=== PATIENT | male | born 1935 | race Caucasian/White ===

== ENCOUNTER 2021-11-16 08:38 | Outpatient (CLI) | payer MEDICARE, SELFPAY ==
[2021-11-16 18:33] LABS: Hemoglobin A1C 8.1 % (<5.7)
[2021-11-16 18:43] LABS: Alanine Aminotransferase 15 U/L (6-50); Albumin Level 4.4 g/dL (3.5-5.1); Alkaline Phosphatase 76 U/L (38-126); Anion Gap 14 mmol/L (8-16); Aspartate Amino Transferase 45 U/L (17-59); Bilirubin,Total 0.4 mg/dL (0.2-1.3); Blood Urea Nitrogen 14 mg/dL (9-20); Calcium 9.1 mg/dL (8.4-10.2); Carbon Dioxide 24 mmol/L (22-30); Chloride 103 mmol/L (98-107); Estimated Glomerular Filt Rate > 60; Glucose 158 mg/dL (65-110); Potassium 3.9 mmol/L (3.4-5.0); Sodium 141 mmol/L (137-145)
== END 2021-11-16 08:39 | disposition home or self-care (01) ==
LOC: ANHGOSHLAB 08:42
PROVIDERS: PCP Family Medicine; Visit Provider Family Medicine
DX: E11.9 Type 2 diabetes mellitus without complications (principal)
CPT/HCPCS: 36415; 80053; 83036

== ENCOUNTER 2022-09-15 15:38 | Outpatient (CLI) | payer MEDICARE, SELFPAY ==
[2022-09-15 19:17] LABS: Alanine Aminotransferase 16 U/L (6-50); Albumin Level 4.3 g/dL (3.5-5.1); Alkaline Phosphatase 64 U/L (38-126); Anion Gap 7 mmol/L (8-16); Aspartate Amino Transferase 24 U/L (17-59); Bilirubin,Total 0.4 mg/dL (0.2-1.3); Blood Urea Nitrogen 13 mg/dL (9-20); Calcium 9.6 mg/dL (8.4-10.2); Carbon Dioxide 30 mmol/L (22-30); Chloride 101 mmol/L (98-107); Cholesterol 186 mg/dL (0-200); Estimated Glomerular Filt Rate > 60; Glucose 192 mg/dL (65-110); HDL Direct 36 mg/dL; Potassium 4.4 mmol/L (3.4-5.0); Sodium 138 mmol/L (137-145); Triglycerides 195 mg/dL (<150)
[2022-09-15 19:28] LABS: LDL Cholesterol Direct 117 mg/dL
[2022-09-15 20:08] LABS: Hemoglobin A1C 9.8 % (<5.7)
== END 2022-09-15 15:39 | disposition home or self-care (01) ==
LOC: ANHGOSHLAB 15:39
PROVIDERS: PCP Family Medicine; Visit Provider Family Medicine
DX: E11.9 Type 2 diabetes mellitus without complications (principal)
CPT/HCPCS: 36415; 80053; 80061; 83036

== ENCOUNTER 2023-05-14 13:59 | Outpatient (CLI) | payer MEDICARE, SELFPAY ==
--- NOTE | ~2023-05-14 | XR_ITS ---
EXAMINATION: XR shoulder RT min 2V DATE: 05/14/2023 14:13 INDICATION: Right shoulder pain. TECHNIQUE: 4 views of right shoulder were obtained. COMPARISON: None. FINDINGS: Bone alignment is normal. No fracture. There is severe osteoarthritis of glenohumeral joint and acromioclavicular joint. There is a loose body in right glenohumeral joint. 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 IMPRESSION: 1. 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 Reviewed, dictated and finalized at location A.
== END 2023-05-14 14:00 ==
PROVIDERS: PCP Family Medicine; Visit Provider Family Medicine
DX: M19.011 Primary osteoarthritis, right shoulder (principal)
CPT/HCPCS: 73030

== ENCOUNTER 2024-03-23 15:30 | Emergency (ER) | payer MEDICARE, SELFPAY ==
[2024-03-23 15:55] VITALS: BP 177/134; PULSE 111; RESP 20; TEMP 36.3; O2SAT 99
--- NOTE | 2024-03-23 16:12 | ED_ITS ---
HPI - Fall General Chief Complaint: Fall Stated Complaint: Injured Face Right Side Time Seen by Provider: 03/23/24 15:46 Source: patient, family () and RN notes reviewed Mode of arrival: ambulatory Limitations: no limitations History of Present Illness HPI Narrative: and daughter present with patient today with a large laceration to his forehead and smaller lacerations to his hands. Patient was found approximately 1 hour prior to exam by his neighbors lying in his driveway. Patient does not remember falling or what happened prior to his fall. He is unsure how long he was lying in his driveway before he was found. He denies any current pain, dizziness, headache, vision changes, neck pain. He is unsure of the date of his last tetanus vaccine. Related Data Allergies Allergy/AdvReac Type Severity Reaction Status Date / Time No Known Allergies Allergy Unknown Verified 03/23/24 15:53 Review of Systems Review of Systems: CONSTITUTIONAL: Denies body aches, fever, chills, or sweats. EYES: Denies visual changes, redness, or discharge. ENT: Denies rhinorrhea, congestion, sore throat, or otalgia. CARDIOVASCULAR: Denies chest pain, palpitations, or edema. RESPIRATORY: Denies cough or dyspnea. GASTROINTESTINAL: Denies abdominal pain, nausea, vomiting, or diarrhea. GENITOURINARY: Denies dysuria or hematuria. SKIN: Forehead laceration, laceration of fingers MUSCULOSKELETAL: Denies back pain, joint pain, or myalgia. NEUROLOGIC: Denies headache, numbness, tingling, or weakness. PSYCH: Denies depression or anxiety. [facility] Past Medical History Medical History Cognitive impairment Overweight (BMI 25.0-29.9) Family History Family History Grandparent Diabetes mellitus Mother Diabetes mellitus Father Patient's father is Other Carcinoma of colon Social History Social History Smoking status: Current some day smoker Alcohol intake: never Lack of Transportation: No Lack of Food: Never True Current Housing: I Have Housing Concerned About Future Housing: No Difficulty Paying Gas/Electric Bills: No Difficulty Paying for Meds: No Comments At time of signature, I have reviewed and agree with nursing past medical, surgical, social and family history unless otherwise noted. Please see nursing chart for further information. There is no relevant family history pertinent to the presenting complaint Exam Narrative: GENERAL: Well-appearing, well-nourished, and in no acute distress. HEAD: Normocephalic. Approximately 5 cm jagged laceration to the mid forehead that is approximately 1.5 cm deep and has moderate active bleeding. EYES: EOMI. PERRL. No redness or drainage. Conjunctivae normal. ENT: Mucous membranes pink and moist. NECK: Normal AROM. Supple. No lymphadenopathy. Neck is nontender. CHEST: No respiratory distress. EXTREMITIES: Laceration to the right 5th finger and palm area. Left 2nd finger laceration, skin tear to left dorsum. SKIN: Warm, dry, no rash. Capillary refill normal. Normal skin turgor. NEURO: No focal deficits. Alert and oriented x3. Gait steady. PSYCH: Normal affect. No signs of depression or anxiety. Course Course Emergency Course: Pressure dressing applied to forehead. Dressings applied to hands Level of Care: Express Care Visit Vital Signs Vital signs: Vital Signs Temperature 97.3 F L 03/23/24 15:55 Pulse Rate 111 H 03/23/24 15:55 Respiratory Rate 03/23/24 15:55 Blood Pressure 177/134 H 03/23/24 15:55 Pulse Oximetry 99 03/23/24 15:55 Temperature 97.3 F L 03/23/24 15:55 Pulse Rate 111 H 03/23/24 15:55 Respiratory Rate 03/23/24 15:55 Blood Pressure 177/134 H 03/23/24 15:55 Pulse Oximetry 99 03/23/24 15:55 Reviewed. Transfer Transfered to: [facility] Transportation: Other (Private vehicle) Transfer rationale: Unwitnessed fall, head injury Accepting physician: León MDM - Fall MDM Narrative Medical decision making narrative: Patient will be transferred to the ER at [facility] for further evaluation. Declines EMS transfer. Differential Diagnosis Differential diagnosis: Likely syncope and other (TIA, slip and fall, loss consciousness, intracranial hemorrhage, laceration, abrasion) Critical Care Time Critical Care Time Critical Care Time: No Discharge Plan Discharge Clinical Impression: Fall, Forehead laceration, Laceration of dorsum of hand Patient Disposition: Acute Care Hospital Condition: Stable Patient Language: Ghanaian Prescriptions: No Action pentoxifylline 400 mg tablet extended release See Rx Instructions .ROUTE .COMPLEX Qty: 270 3RF Dose Instruction: TAKE 1 TABLET TWICE A DAY Rx Instructions: TAKE 1 TABLET three x A DAY metformin 500 mg tablet extended release 24 hr See Rx Instructions .ROUTE .COMPLEX Qty: 180 1RF Dose Instruction: TAKE 1 TABLET TWICE A DAY Rx Instructions: TAKE 1 TABLET TWICE A DAY lisinopril 20 mg tablet See Rx Instructions .ROUTE .COMPLEX Qty: 90 1RF Dose Instruction: TAKE 1 TABLET DAILY Rx Instructions: TAKE 1 TABLET DAILY Follow-up/Referrals: PHYSICIAN,ELECTRIC METER INSTALLER [Primary Care Provider] - Time of Disposition: 16:14
== END 2024-03-23 16:14 | disposition short-term general hospital (02) ==
PROVIDERS: Emergency Provider Nurse Practitioner
DX: S01.81XA Laceration without foreign body of other part of head, initial encounter (principal); S61.216A Laceration without foreign body of right little finger without damage to nail, initial encounter; S61.211A Laceration without foreign body of left index finger without damage to nail, initial encounter; S61.411A Laceration without foreign body of right hand, initial encounter; W19.XXXA Unspecified fall, initial encounter; F17.200 Nicotine dependence, unspecified, uncomplicated
CPT/HCPCS: 99212; G0463

== ENCOUNTER 2024-03-23 16:32 | Emergency (ER) | payer MEDICARE, SELFPAY ==
--- NOTE | ~2024-03-23 | CT_ITS ---
EXAMINATION: CT brain wo con DATE: 03/23/2024 17:44 INDICATION: trauma . TECHNIQUE: Computed tomography (CT) of the head was performed without intravenous contrast. The mA wa s adjusted according to patient size. Iterative reconstruction technique was employed. The dose-lengt h product was 681.00 mGy-cm. COMPARISON: None. FINDINGS: No acute intracranial hemorrhage or extra-axial fluid collection. No hydrocephalus, mass, or herniation. No acute ischemic infarct. Unremarkable dural venous sinus attenuation. No acute osseous abnormality. Left frontal/periorbital soft tissue swelling. The aerated spaces are clear. Moderate atrophy and chronic white matter change. Atherosclerotic intracranial calcification. Bilater al lens replacements. IMPRESSION: No acute intracranial process. Reviewed, dictated and finalized at location K. UNT ADMINISTRATOR
--- NOTE | ~2024-03-23 | CT_ITS ---
EXAMINATION: CT facial & cervical spine wo DATE: 03/23/2024 17:44 INDICATION: trauma TECHNIQUE: Computed tomography (CT) of the maxillofacial region and cervical spine was performed with out intravenous contrast. Automated exposure control and iterative reconstruction technique were empl oyed. The dose-length product was 290.49 mGy-cm. COMPARISON: None FINDINGS: CERVICAL: Vertebral Body Alignment: Intact. Craniocervical and atlantoaxial alignment: Moderate degenerative change. Alignment intact. Osseous structures/fracture: No evidence of a lytic or blastic process in the visualized spine. No e vidence of acute fracture. Cervical soft tissues: The paraspinal soft tissues planes are maintained. Degenerative changes: Degenerative changes, without severe neural foraminal or central canal narrowin g. FACE: Soft Tissues: Left frontal, periorbital, and cheek soft tissue swelling. Facial bones: No acute fracture. No lytic or blastic process. Eyes: The globes are intact. The soft tissue planes of the orbits are maintained. Bilateral lens re placements. Paranasal Sinuses: The visualized aerated spaces are clear. Foreign Bodies: No radiopaque foreign bodies. Other Findings: Periodontal disease. IMPRESSION: No acute fracture or traumatic malalignment in the cervical spine. No acute facial bone fracture. Reviewed, dictated and finalized at location K. SEALING MACHINE OPERATOR IMPRESSION: No acute fracture or traumatic malalignment in the cervical spine. No acute fac ial bone fracture.
--- NOTE | ~2024-03-23 | XR_ITS ---
EXAM: XR hand LT min 3V DATE: 03/23/2024 17:50 HISTORY: hand injury . COMPARISON: None available. FINDINGS: Normal mineralization. No fracture or dislocation. No lytic or blastic lesion. Scattered o steoarthritic changes, moderate at the first CMC joint. No erosion or periosteal change. Multiple irr egular hyperdense foci in the soft tissues adjacent to the fifth MTP joint and proximal fifth digit, with soft tissue irregularity. IMPRESSION: Soft tissue laceration and debris projecting laterally at the level of the fifth MTP join t and fifth proximal digit. Reviewed, dictated and finalized at location K. PERSON IMPRESSION: Soft tissue laceration and debris projecting laterally at the level of the fifth MTP joint and fifth proximal digit.
[2024-03-23 16:36] VITALS: BP 177/108; PULSE 116; RESP 18; TEMP 36.8; O2SAT 98
--- NOTE | 2024-03-23 17:16 | PC.NURSE ---
MD Traore at bedside suturing laceration on pt. forehead.
--- NOTE | 2024-03-23 17:34 | ED_ITS ---
HPI - General Adult General Chief complaint: Fall Stated complaint: unwitnessed fall Time Seen by Provider: 03/23/24 16:42 History of Present Illness HPI narrative: 89-year-old male presenting to the emergency department for evaluation after having a ground level fall. Patient does have dementia and states that she was unaware that the patient had gotten outside. Patient had the doorbell rang and was actually the neighbors notifying her that the patient had a fall in the yd. She suspects he was outside for approximately 10 minutes. Patient states he was not outside for that long. Patient did have a laceration does forehead contusion to the left side of his face and multiple skin tears. Patient is alert at his baseline denies any current pain. Related Data Allergies Allergy/AdvReac Type Severity Reaction Status Date / Time No Known Allergies Allergy Unknown Verified 03/23/24 16:35 Review of Systems Review of Systems: All systems reviewed & are unremarkable except as noted in HPI and below PMFSH Past Medical History Medical History Cognitive impairment Overweight (BMI 25.0-29.9) Family History Family History Grandparent Diabetes mellitus Mother Diabetes mellitus Father Patient's father is Other Carcinoma of colon Social History Social History Smoking status: Current some day smoker Alcohol intake: never Lack of Transportation: No Lack of Food: Never True Current Housing: I Have Housing Concerned About Future Housing: No Difficulty Paying Gas/Electric Bills: No Difficulty Paying for Meds: No Exam Narrative: APPEARANCE: Well appearing, no pain, no distress, well-nourished. HEAD: normocephalic, atraumatic. EYES: PERRLA/EOMI, conjunctivae clear. NOSE: Normal no drainage EARS:TMS clear with good light reflex. THROAT: Pharynx clear, no exudate. NECK: Supple. No adenopathy, no masses. RESPIRATORY: Airway patent, respirations nonlabored. Clear to auscultation bilaterally, no rales, rhonchi, wheezing. CARDIOVASCULAR: Regular rate and rhythm without murmurs rubs or gallops. ABDOMINAL: Soft, nontender, nondistended, normal bowel sounds MUSCULOSKELETAL: Contusion to left hand NEURO: Alert. Cranial nerves II through XII intact. Good gait. Good coordination SKIN: Forehead laceration and multiple skin tears Course Vital Signs Vital signs: Vital Signs Temperature 98.2 F 03/23/24 16:36 Pulse Rate 116 H 03/23/24 16:36 Respiratory Rate 18 03/23/24 16:36 Blood Pressure 177/108 H 03/23/24 16:36 Pulse Oximetry 98 03/23/24 16:36 Oxygen Delivery Room Air 03/23/24 16:36 Temperature 98.2 F 03/23/24 16:36 Pulse Rate 104 H 03/23/24 18:19 Respiratory Rate 16 03/23/24 18:19 Blood Pressure 175/103 H 03/23/24 18:19 Pulse Oximetry 99 03/23/24 18:19 Oxygen Delivery Room Air 03/23/24 16:36 Procedures Laceration Laceration 1: Date: 03/23/24 Time: 17:34 Site: face Size (cm): 4 Description: flap and irregular Depth: simple, single layer Local Anesthetic: lidocaine 1% and with epi Amount of anesthesia used (mL): 3 Pre-repair: wound explored, irrigated and irrigated extensively ====== Skin Level ====== Skin layer closed with: prolene Size (cm): 4-0 Number of sutures: 6 Technique: simple, interrupted ====== Subcutaneous Layer ====== ====== Muscle Layer ====== ====== Tendon Layer ====== Medical Decision Making [facility] Narrative Medical decision making narrative: 89-year-old male presenting to the emergency department for evaluation after having a ground level fall. Patient did have a significant head injury that was repaired as described in the procedure note. Patient did have a CT head, CT cervical spine, CT facial bones which were all negative for acute abnormality. Patient was having some tenderness to the left hand but no acute fracture dislocation. Patient did have multiple skin tears and abrasions that were closed. Patient did have a complex laceration of the scalp that was repaired. Patient was started on antibiotics due to this occurring on a gravel driveway. Wound was cleaned extensively. Patient was able to ambulate it is baseline and denies any pain or complaint. Differential Diagnosis Differential Diagnosis: Subdural hematoma, subarachnoid hemorrhage, hand fracture, skin tears, scalp laceration, skull fracture Vital Signs Vital Signs: Vital Signs Temperature 98.2 F 03/23/24 16:36 Pulse Rate 116 H 03/23/24 16:36 Respiratory Rate 18 03/23/24 16:36 Blood Pressure 177/108 H 03/23/24 16:36 Pulse Oximetry 98 03/23/24 16:36 Oxygen Delivery Room Air 03/23/24 16:36 Temperature 98.2 F 03/23/24 16:36 Pulse Rate 104 H 03/23/24 18:19 Respiratory Rate 16 03/23/24 18:19 Blood Pressure 175/103 H 03/23/24 18:19 Pulse Oximetry 99 03/23/24 18:19 Oxygen Delivery Room Air 03/23/24 16:36 Lab Data Lab results reviewed: Yes I reviewed the patient's lab results. Imaging Data Radiologist's impression: Impressions Head CT 03/23/24 17:46 IMPRESSION: No acute intracranial process. Head/Cervical Spine/Facial Bones CT 03/23/24 17:50 IMPRESSION: No acute fracture or traumatic malalignment in the cervical spine. No acute facial bone fracture. Hand X-Ray 03/23/24 17:57 IMPRESSION: Soft tissue laceration and debris projecting laterally at the level of the fifth MTP joint and fifth proximal digit. Discharge Plan Discharge Clinical Impression: Facial laceration, Contusion of face, Multiple skin tears Patient Disposition: Home, Self-Care Condition: Stable Instructions: Antibiotic Form, Laceration (ED), Head Injury (ED) Additional Instructions: Sutures need to be removed in 5-7 days. Antibiotics as directed until completed. Have close follow-up with your primary care physician. If you have any worsening symptoms then please call or return to the emergency department. Patient Language: Kuwaiti Prescriptions: New cephalexin 500 mg capsule 500 mg PO Q8H 7 Days Qty: 21 0RF No Action pentoxifylline 400 mg tablet extended release See Rx Instructions .ROUTE .COMPLEX Qty: 270 3RF Dose Instruction: TAKE 1 TABLET TWICE A DAY Rx Instructions: TAKE 1 TABLET three x A DAY metformin 500 mg tablet extended release 24 hr See Rx Instructions .ROUTE .COMPLEX Qty: 180 1RF Dose Instruction: TAKE 1 TABLET TWICE A DAY Rx Instructions: TAKE 1 TABLET TWICE A DAY lisinopril 20 mg tablet See Rx Instructions .ROUTE .COMPLEX Qty: 90 1RF Dose Instruction: TAKE 1 TABLET DAILY Rx Instructions: TAKE 1 TABLET DAILY Follow-up/Referrals: Johnathan Perez MD [Primary Care Provider] -
[2024-03-23 18:19] VITALS: BP 175/103; PULSE 104; RESP 16; O2SAT 99
== END 2024-03-23 18:59 | disposition home or self-care (01) ==
PROVIDERS: Emergency Provider Emergency Medicine; PCP Family Medicine
DX: S01.81XA Laceration without foreign body of other part of head, initial encounter (principal); S61.412A Laceration without foreign body of left hand, initial encounter; W18.30XA Fall on same level, unspecified, initial encounter; F03.90 Unspecified dementia, unspecified severity, without behavioral disturbance, psychotic disturbance, mood disturbance, and anxiety
CPT/HCPCS: 12013; 70450; 70486; 72125; 73130; 99284

== ENCOUNTER 2024-07-05 15:21 | Observation (INO) | payer MEDICARE, SELFPAY ==
--- NOTE | ~2024-07-05 | XR_ITS ---
EXAMINATION: XR chest 2V Exam Date/Time: 07/05/2024 15:48 CDT HISTORY: gen weakness Comparison: None. RESULT: Lines, tubes, and devices: None. Lungs and pleura: No focal consolidation, pleural effusion, or pneumothorax. Granulomatous calcifica tions. Cardiomediastinal silhouette: Mild aortic unfolding. Calcified lymph nodes. Other: No acute osseous or upper abdominal finding. Degenerative changes in the bilateral shoulder, moderate-severe in the right shoulder. IMPRESSION: No acute cardiopulmonary process. Reviewed, dictated and finalized at location K.
--- NOTE | ~2024-07-05 | XR_ITS ---
EXAM: XR elbow LT min 3V DATE: 07/05/2024 17:15 HISTORY: injury . COMPARISON: None available. FINDINGS: Normal mineralization. No fracture or dislocation. No lytic or blastic lesion. Joint space s are maintained. No erosion or periosteal change. Soft tissues within normal limits. IMPRESSION: No acute osseous finding in the left elbow. Reviewed, dictated and finalized at location K.
--- NOTE | ~2024-07-05 | CT_ITS ---
EXAMINATION: CT brain wo con DATE: 07/05/2024 16:54 INDICATION: trauma . TECHNIQUE: Computed tomography (CT) of the head was performed without intravenous contrast. The mA wa s adjusted according to patient size. Iterative reconstruction technique was employed. The dose-lengt h product was 681.00 mGy-cm. COMPARISON: 03/23/2024. FINDINGS: No acute intracranial hemorrhage or extra-axial fluid collection. No hydrocephalus, mass, or herniation. No acute ischemic infarct. Unremarkable dural venous sinus attenuation. No acute osseous abnormality. The aerated spaces are clear. Moderate atrophy and chronic white matter change. Atherosclerotic intracranial calcification. Bilater al lens replacements. IMPRESSION: No acute intracranial process. Reviewed, dictated and finalized at location K.
--- NOTE | ~2024-07-05 | CT_ITS ---
EXAMINATION: CT cervical spine wo con DATE: 07/05/2024 16:58 INDICATION: trauma TECHNIQUE: Computed tomography (CT) of the cervical spine was performed without intravenous contrast. Automated exposure control and iterative reconstruction technique were employed. The dose-length pro duct was 363.95 mGy-cm. COMPARISON: 03/23/2024. FINDINGS: Vertebral Body Alignment: Intact. Craniocervical and atlantoaxial alignment: Moderate degenerative change. Alignment intact. Osseous structures/fracture: No evidence of a lytic or blastic process in the visualized spine. No e vidence of acute fracture. Cervical soft tissues: The paraspinal soft tissues planes are maintained. Biapical pleural scarring. 5 mm left upper lobe pulmonary nodule (image 259/294). Degenerative changes: Multilevel severe degenerative disc disease. Multilevel facet arthropathy. Tari re left neural foraminal narrowing at C6-7 secondary to degenerative changes. No severe central canal narrowing. IMPRESSION: No acute fracture or traumatic malalignment in the cervical spine. 5 mm left upper lobe pulmonary nodule which requires no additional evaluation, unless the patient is at high risk, in which case consider an optional low-dose noncontrast CT of the chest in 12 months. Reviewed, dictated and finalized at location K.
--- NOTE | ~2024-07-05 | XR_ITS ---
EXAM: XR elbow RT min 3V DATE: 07/05/2024 17:42 HISTORY: FALL . COMPARISON: None available. FINDINGS: Normal mineralization. No fracture or dislocation. No lytic or blastic lesion. Minimal deg enerative change at the elbow joint. No erosion or periosteal change. Soft tissues within normal limi ts. IMPRESSION: No acute osseous finding in the right elbow. Reviewed, dictated and finalized at location K.
[2024-07-05 15:27] VITALS: BP 181/109; PULSE 103; RESP 18; O2SAT 98
[2024-07-05 15:32] VITALS: PULSE 97; TEMP 37.1
--- NOTE | 2024-07-05 15:33 | ECG_ITS ---
Test Date: 2024-07-05 16:14:11 Measurements Intervals Marcell Rate: 113 P: 67 MO: 211 QRS: 1 QRSD: 106 T: 73 QT: 310 QTc: 426 Interpretive Statements SINUS TACHYCARDIA WITH FIRST DEGREE AV BLOCK WITH OCCASIONAL SUPRAVENTRICULAR PREMATURE COMPLEXES NONSPECIFIC ST & T-WAVE ABNORMALITY No previous ECG available for comparison Electronically Signed On 07-06-2024 16:02:51 CDT by Dinah Small
[2024-07-05 16:06] LABS: Basophils Absolute Auto 0.1 K/mm3 (0.0-0.1); Basophils Percent Auto 0.5 % (0.2-1.2); Eosinophils Percent Auto 0.3 % (0-4.4); Hematocrit 41.3 % (42.0-52.0); Hemoglobin 14.4 g/dL (14.0-18.0); Immature Granulocyte Absolute 0.04 K/mm3 (0.00-0.031); Immature Granulocyte Percent A 0.3 % (0-0.5); Lymphocytes Absolute Auto 1.95 K/mm3 (0.9-3.2); Lymphocytes Percent Auto 16.5 % (18.3-44.2); Mean Corpuscular HGB Conc 34.9 g/dl (32-36); Mean Corpuscular Hemoglobin 29.2 pg (26-34); Mean Corpuscular Volume 83.8 fl (80-100); Mean Platelet Volume 9.7 fl (7.4-10.4); Monocytes Percent Auto 8.6 % (2.6-8.5); Neutrophils Absolute Auto 8.7 K/mm3 (1.3-6.7); Neutrophils Percent Auto 73.8 % (45.5-73.1); Platelet Count Result 246 k/mm3 (150-375); Red Blood Count 4.93 M/mm3 (4.6-6.20); Red Cell Distribution Width 13.5 % (11.5-14.5); White Blood Count 11.8 K/mm3 (4.5-10.0)
[2024-07-05 16:17] LABS: Alanine Aminotransferase 16 U/L (6-50); Albumin Level 4.4 g/dL (3.5-5.1); Alkaline Phosphatase 87 U/L (38-126); Anion Gap 9 mmol/L (4-12); Aspartate Amino Transferase 42 U/L (17-59); Bilirubin,Total 0.7 mg/dL (0.2-1.3); Blood Urea Nitrogen 14 mg/dL (9-20); Calcium 9.4 mg/dL (8.4-10.2); Carbon Dioxide 23 mmol/L (22-30); Chloride 108 mmol/L (98-107); Estimated CRCL calculation 55 ml/min; Estimated Glomerular Filt Rate > 60; Glucose 140 mg/dL (65-110); Potassium 3.7 mmol/L (3.4-5.0); Sodium 140 mmol/L (137-145)
--- NOTE | 2024-07-05 16:48 | ED_ITS ---
HPI - General Adult General Chief complaint: Weakness Stated complaint: increased weakness, mult. falls today Time Seen by Provider: 07/05/24 16:10 History of Present Illness HPI narrative: 89-year-old male presenting to the emergency department for evaluation for increased generalized weakness and frequent falls. Patient does have history of worsening dementia and does stay at home. Patient has had multiple falls including last week and then 2 today. states she was unable to pick the patient off the floor today after his 1st fall and patient had a 2nd fall. Patient does have dementia at baseline has been having increasing falls. states that she is unable to care for the patient at home due to his worsening deconditioning and gait instability and frequent falls. states that she is willing to consider PT OT evaluation and rehab placement. Related Data Allergies Allergy/AdvReac Type Severity Reaction Status Date / Time No Known Allergies Allergy Unknown Verified 04/04/24 15:14 Review of Systems 2 Review of Systems: All systems reviewed & are unremarkable except as noted in HPI and below PMFSH Past Medical History Medical History Cognitive impairment Overweight (BMI 25.0-29.9) Family History Family History Grandparent Diabetes mellitus Mother Diabetes mellitus Father Patient's father is Other Carcinoma of colon Social History Social History Smoking status: Current some day smoker Alcohol intake: never Lack of Transportation: No Lack of Food: Never True Current Housing: I Have Housing Concerned About Future Housing: No Difficulty Paying Gas/Electric Bills: No Difficulty Paying for Meds: No Exam 2 Narrative: APPEARANCE: Unkempt and ill-appearing HEAD: normocephalic, atraumatic. EYES: PERRLA/EOMI, conjunctivae clear. NOSE: Normal no drainage EARS:TMS clear with good light reflex. THROAT: Pharynx clear, no exudate. NECK: Supple. No adenopathy, no masses. RESPIRATORY: Airway patent, respirations nonlabored. Clear to auscultation bilaterally, no rales, rhonchi, wheezing. CARDIOVASCULAR: Regular rate and rhythm without murmurs rubs or gallops. ABDOMINAL: Soft, nontender, nondistended, normal bowel sounds MUSCULOSKELETAL: Moves all extremities. Strength/ROM intact, No edema, No calf tenderness. NEURO: Alert. No focal neuro deficit SKIN: Warm, dry. Normal Color Course Vital Signs Vital signs: Vital Signs Pulse Rate 103 H 07/05/24 15:27 Respiratory Rate 18 07/05/24 15:27 Blood Pressure 181/109 H 07/05/24 15:27 Pulse Oximetry 98 07/05/24 15:27 Temperature 98.7 F 07/05/24 15:32 Pulse Rate 105 H 07/05/24 17:37 Respiratory Rate 18 07/05/24 17:37 Blood Pressure 157/114 H 07/05/24 17:37 Pulse Oximetry 100 07/05/24 17:37 Medical Decision Making MDM Narrative Medical decision making narrative: 81-year-old male present to the emergency department for evaluation for physical deconditioning and frequent falls. Patient is currently afebrile but does have a leukocytosis of 11.8 and hemoglobin of 14.4. Patient has no significant abnormalities on his CMP other than elevated blood sugar at 140. Patient had hematuria in his urine but no evidence of underlying urinary tract infection. Patient's COVID RSV and influenza were negative. Patient does have contusions to bilateral elbows these were negative for acute fractures. CT cervical spine was negative for acute fracture. CT brain was negative. No acute cardiopulmonary abnormality on x-ray. Case discussed with hospitalist and patient will be admitted for PT OT and care coordination consult for potential rehab versus halfway placement. Patient family are comfortable with this plan. Differential Diagnosis Differential Diagnosis: COVID, RSV, influenza, subdural hematoma, subarachnoid hemorrhage, cervical spine fracture, elbow fracture, deconditioning, disease progression Vital Signs Vital Signs: Vital Signs Pulse Rate 103 H 07/05/24 15:27 Respiratory Rate 18 07/05/24 15:27 Blood Pressure 181/109 H 07/05/24 15:27 Pulse Oximetry 98 07/05/24 15:27 Temperature 98.7 F 07/05/24 15:32 Pulse Rate 105 H 07/05/24 17:37 Respiratory Rate 18 07/05/24 17:37 Blood Pressure 157/114 H 07/05/24 17:37 Pulse Oximetry 100 07/05/24 17:37 Lab Data Lab results reviewed: Yes I reviewed the patient's lab results. 07/05/24 16:01 07/05/24 16:01 Labs: Lab Results 07/05/24 07/05/24 07/05/24 Range/Units 16:01 16:46 17:37 WBC 11.8 H (4.5-10.0) K/mm3 RBC 4.93 (4.6-6.20) M/mm3 Hgb 14.4 (14.0-18.0) g/dL Hct 41.3 L (42.0-52.0) % MCV 83.8 (80-100) fl MCH 29.2 (26-34) pg MCHC 34.9 (32-36) g/dl RDW 13.5 (11.5-14.5) % Plt Count 246 (150-375) k/mm3 MPV 9.7 (7.4-10.4) fl Immature Gran % (Auto) 0.3 (0-0.5) % Neut % (Auto) 73.8 H (45.5-73.1) % Lymph % (Auto) 16.5 L (18.3-44.2) % [place] % (Auto) 8.6 H (2.6-8.5) % Eos % (Auto) 0.3 (0-4.4) % Baso % (Auto) 0.5 (0.2-1.2) % Lymph # (Auto) 1.95 (0.9-3.2) K/mm3 [place] # (Auto) 1.0 H (0.1-0.6) K/mm3 Eos # (Auto) 0.0 (0-0.3) K/mm3 Baso # (Auto) 0.1 (0.0-0.1) K/mm3 Abs Immat Gran (auto) 0.04 H (0.00-0.031) K/mm3 Absolute Neuts (auto) 8.7 H (1.3-6.7) K/mm3 Absolute Nucleated RBC 0.000 (0.0-0.012) K/mm3 Nucleated RBC % 0.0 (0.0-0.2) % Sodium 140 (137-145) mmol/L Potassium 3.7 (3.4-5.0) mmol/L Chloride 108 H (98-107) mmol/L Carbon Dioxide 23 (22-30) mmol/L Anion Gap 9 (4-12) mmol/L BUN 14 (9-20) mg/dL Creatinine 0.81 (0.7-1.3) mg/dL Estim Creat Clear Calc 55 ml/min Estimated GFR > 60 (59 - ) Glucose 140 H (65-110) mg/dL Calcium 9.4 (8.4-10.2) mg/dL Total Bilirubin 0.7 (0.2-1.3) mg/dL AST 42 (17-59) U/L ALT 16 (6-50) U/L Alkaline Phosphatase 87 (38-126) U/L Total Protein 7.0 (6.3-8.2) g/dL Albumin 4.4 (3.5-5.1) g/dL Urine Color Yellow (Yellow) Urine Appearance Clear (Clear) Urine pH 6.0 (5.0-9.0) Ur Specific [place] 1.012 (1.001-1.035) Urine Protein 2+ H (Negative) mg/dL Urine Glucose (UA) 1+ H (Negative) mg/dL Urine Ketones Trace H (Negative) mg/dL Ur Blood (Man) 1+ H (Negative) Urine Nitrate Negative (Negative) Urine Bilirubin Negative (Negative) Urine Urobilinogen 0.2 (<2.0) mg/dL Leukocyte Esterase Rfl Negative (Negative) DAVE/UL Urine RBC 0-2 (0-2) /hpf Urine WBC 0-5 (0-3) /hpf Ur Squamous Epith Cells None seen (Few) /hpf Urine Bacteria None seen /hpf Urine Casts 0-2 Influenza A (RT-PCR) Negative (Negative) Influenza B (RT-PCR) Negative (Negative) RSV (RT-PCR) Negative (Negative) SARS-CoV-2 RNA (RT-PCR) Negative (Negative) Imaging Data Radiologist's impression: Impressions Chest X-Ray 07/05/24 15:59 IMPRESSION: No acute cardiopulmonary process. Head CT 07/05/24 17:14 IMPRESSION: No acute intracranial process. Cervical Spine CT 07/05/24 18:14 IMPRESSION: No acute fracture or traumatic malalignment in the cervical spine. 5 mm left upper lobe pulmonary nodule which requires no additional evaluation, unless the patient is at high risk, in which case consider an optional low-dose noncontrast CT of the chest in 12 months. Discharge Plan Discharge Clinical Impression: Falls frequently, Head injury, Dementia, Adult failure to thrive Patient Disposition: Still a Patient Condition: Stable
[2024-07-05 17:25] LABS: Influenza A QL RT-PCR Negative (Negative); Influenza B QL RT-PCR Negative (Negative); RSV RNA, RT-PCR Negative (Negative); SARS-CoV-2 RNA PCR Negative (Negative)
[2024-07-05 17:37] VITALS: BP 157/114; PULSE 105; RESP 18; O2SAT 100
--- NOTE | 2024-07-05 17:37 | PC.NURSE ---
Call to XR R elbow XR obtained, L ordered. Will repeat for L elbow
[2024-07-05 17:49] LABS: Add Urine Microscopic? YES; Appearance Urine Clear (Clear); Bacteria Urine None Seen /hpf; Bilirubin Urine Negative (Negative); Blood Urine 1+ (Negative); Color Urine Yellow (Yellow); Glucose Urine UA 1+ mg/dL (Negative); Ketones Urine Trace mg/dL (Negative); Leukocyte Esterase Ur Negative LEU/UL (Negative); Nitrate Urine Negative (Negative); Non Pathogenic Casts 0-2; Protein Urine 2+ mg/dL (Negative); RBC Urine 0-2 /hpf (0-2); Specific Grav Ur 1.012 (1.001-1.035); Squamous Epithelial Cell Urine None Seen /hpf (Few); Urobilinogen Urine 0.2 mg/dL (<2.0); WBC Urine 0-5 /hpf (0-3)
--- NOTE | 2024-07-05 19:29 | PC.NURSE ---
Called to give report, RN in another room, requested I call back. Per conveyor line battery charger, patient being transported to floor at this time.
[2024-07-05 20:05] VITALS: BP 146/97; PULSE 76; RESP 18; TEMP 36.8; O2SAT 97
[2024-07-05 20:07] VITALS: BMI 22.1
--- NOTE | 2024-07-05 20:43 | P.HP_ITS ---
H&P: HPI History of Present Illness Date/Time: 07/05/24 20:43 Chief Complaint: Weakness, Increased falls Narrative: This 89-year-old male patient with history of hypertension, vascular dementia and type 2 diabetes mellitus to resides at home with his spouse of 66+ years comes to the emergency room brought by EMS after having multiple falls at home and gradual decline in mental and physical capacities. Patient's has always been able to care for him at home without difficulty but she noticed for approximately the past month he has had increasing mental decline with increased confusion, his level of orientation being alert and oriented to self at times not recognizing her and calling her mom . He has had a poor appetite and some days only drinks because he is told he has 2. She notes he has been falling more frequently at home. At baseline he ambulates with a walker and states that today he fell attempting to get out of the recliner and after approximately 2 hours he was able to pull himself up on a piece of furniture after crawling over 2 it. She states he set id the recliner than for most of the day but this afternoon attempted to ambulate to the bathroom with a walker and fell in the bathroom hitting his head on the wall. There was no reported loss of consciousness. Who she was unable to assist patient in getting up and therefore called 911. At baseline patient is alert and oriented to self only. She states his current level of orientation is his new baseline for some time now. Patient is pleasant however very confused and nose only his self at this time. He is a chronic smoker noted to be at Minimum a 60 pack-year smoker. Patient's states that she has been told that his dementia is due to his smoking causing vascular disease. Upon arrival to the emergency room he is noted to have scattered bruising on the bilateral upper extremities. Workup was performed in the emergency room that consisted of labs , EKG and imaging. EKG shows sinus tachycardia 113 beats per minute with a first-degree AV block and occasional PVCs. QTC is noted to be 426. Patient's CBC is notable only for marginal elevation in WBCs 11.8. Metabolic panel is unremarkable. [facility] st x-ray was performed that is negative for any acute abnormalities, CT head was negative for any acute intracranial abnormalities and CT of cervical spine showing no fracture but there is a noted nodule in the left upper lobe pole. X- rays were performed of bilateral elbows secondary to the amount of bruising he had and they are without any acute abnormal bony abnormalities. The ER physician discussed with patient's at the bedside her comfortability w/ discharge to home versus admission for potential placement. At this time patient's is emotionally distraught over this decision but ultimately states she can no longer care for him at home and would like to have him placed. Given patient's decline in overall physical and mental capabilities and his height and safety risks ER provider as well as hospitalist Service agrees that this patient should be admitted, observed and evaluated by PT / OT and care coordination consulted for discharge planning/placement. Review of Systems Review of Systems: was primary source of information as pt's severe dementia prevents him from being a reliable historian. All systems reviewed & are unremarkable except as noted in HPI and below PMFSH Past Medical History Medical History Cognitive impairment Overweight (BMI 25.0-29.9) Family History Family History Grandparent Diabetes mellitus Mother Diabetes mellitus Father Patient's father is Other Carcinoma of colon Social History Social History Years smoked: 60 Smoking status: Current some day smoker Tobacco type: cigarettes Second hand tobacco smoke exposure: No Alcohol intake: never Substance use: never Substance use type: does not use Lack of Transportation: No Lack of Food: Never True Current Housing: I Have Housing Concerned About Future Housing: No Difficulty Paying Gas/Electric Bills: No Difficulty Paying for Meds: No Living arrangements: with family Occupation/Education: retired Gender identity (if verbalized by the patient): Male Sexual Orientation (if Verbalized by the Patient): Straight or Heterosexual Spiritual care concerns: No Agree to blood products: Yes Meds Home Medications and Allergies Home Medications ?Medication ?Instructions ?Recorded ?Confirmed ?Type pentoxifylline 400 mg See Rx Instructions .Route 12/31/23 07/05/24 Rx tablet,extended release .COMPLEX #270 tabs lisinopril 20 mg tablet See Rx Instructions .Route 03/11/24 07/05/24 Rx .COMPLEX #90 tabs metformin 500 mg tablet,extended See Rx Instructions .Route 03/11/24 07/05/24 Rx release 24 hr .COMPLEX #180 tabs Allergies Allergy/AdvReac Type Severity Reaction Status Date / Time No Known Allergies Allergy Unknown Verified 04/04/24 15:14 Vital Signs Vital Signs - 24 hr 07/05/24 15:27 07/05/24 15:32 07/05/24 15:32 Temperature 98.7 F Pulse Rate 103 H 97 Respiratory Rate 18 Blood Pressure 181/109 H Pulse Oximetry 98 07/05/24 17:37 Temperature Pulse Rate 105 H Respiratory Rate 18 Blood Pressure 157/114 H Pulse Oximetry 100 Exam Const: General: comfortable and no acute distress Other: Confused, elderly male patient lying supine at this time no acute distress. He is pleasant to interact with. HENMT: Face/Nose/Sinus: Normal nares present Mouth: Yes dry mucous membranes Other: Atraumatic and normocephalic head Eyes: General: appearance normal, both eyes and all related structures Sclera: sclerae normal Pupils: Equal, round and reactive pupils present EOM: EOMs intact bilaterally Neck: Neck: supple and no JVD Chest: Other: nontender to palpation Resp: Effort & Inspection: normal respiratory effort Auscultation: clear to auscultation bilaterally Cardio: Rate: regular rate Rhythm: regular rhythm Heart sounds: no gallops, no murmurs and no rubs GI: Inspection: non-distended GI Palp: Yes Soft to palpation and No Tenderness to palpation present (GI) Auscultation: normal bowel sounds Skin: General skin exam: no rashes or lesions noted and no erythema Other: bruising noted to bilateral upper extremities Neuro: General: No gait normal Speech: normal speech Motor exam (neuro): 5/5 motor strength present throughout and Normal motor muscle tone present throughout Sensory Exam: normal sensation Other: alert oriented to self only Extrem: General: normal to inspection and no edema Psych: Other: A&O times 1 - self only H&P: Results Labs Labs: Short CBC 07/05/24 Range/Units 16:01 WBC 11.8 H (4.5-10.0) K/mm3 Hgb 14.4 (14.0-18.0) g/dL Hct 41.3 L (42.0-52.0) % Plt Count 246 (150-375) k/mm3 BMP 07/05/24 16:01 Sodium 140 Potassium 3.7 Chloride 108 H Carbon Dioxide 23 BUN 14 Creatinine 0.81 Glucose 140 H Calcium 9.4 Liver Function 07/05/24 Range/Units 16:01 Total Bilirubin 0.7 (0.2-1.3) mg/dL AST 42 (17-59) U/L ALT 16 (6-50) U/L Alkaline Phosphatase 87 (38-126) U/L Albumin 4.4 (3.5-5.1) g/dL Urine 07/05/24 Range/Units 17:37 Urine Color Yellow (Yellow) Urine Appearance Clear (Clear) Urine pH 6.0 (5.0-9.0) Ur Specific [place] 1.012 (1.001-1.035) Urine Protein 2+ H (Negative) mg/dL Urine Glucose (UA) 1+ H (Negative) mg/dL Assessment and Plan Assessment and plan (1) Dementia: Code(s): F03.90 - Unspecified dementia, unspecified severity, without behavioral disturbance, psychotic disturbance, mood disturbance, and anxiety Status: Acute Assessment and Plan: * patient at his baseline level of orientation which is to self only. * provide for safety * PT and OT evaluation for discharge planning * care coordination consult for discharge planning and placement (2) Risk for falls: Code(s): Z91.81 - History of falling Status: Acute Assessment and Plan: * heightened risk as patient has had overall decline in mental and physical capacities. * fall precautions * PT/OT (3) Diabetic nephropathy associated with type 2 diabetes mellitus: Code(s): E11.21 - Type 2 diabetes mellitus with diabetic nephropathy Status: Acute Assessment and Plan: * check A1c * continue metformin * Hypoglycemic protocol initiated * as patient has poor appetite will defer starting sliding scale insulin pending trend of glucose * Accu-Cheks a.c. and HS (4) Essential (primary) hypertension: Code(s): I10 - Essential (primary) hypertension Status: Chronic Assessment and Plan: * trend and monitor labs and vital signs * continue home medication of lisinopril 20 mg daily * p.r.n. hydralazine ordered with parameters of systolic greater than 180 and diastolic greater than 90 Quality VTE Prophylaxis VTE prophylaxis: mechanical ordered Hospitalist [facility] Advance Care Plan I have confirmed that the patient's Advanced Care Plan is present, code status is documented, or surrogate decision maker is listed in patient medical record.: Yes Medication Reconciliation I have utilized all available resources to obtain, update and review the patients current medications (includes all prescriptions, OTC, herbals, cannabis, and nutritional supplements).: Yes
[2024-07-05 21:36] LABS: Hemoglobin A1C 8.2 % (<5.7)
[2024-07-06 00:05] VITALS: BP 171/96
[2024-07-06] MEDS: LORazepam INJ (*CRX) 2 MG/ML VIAL 0.5 MG IV PUSH ×2 (03:26→23:51)
[2024-07-06 04:54] LABS: Glucose Point of Care 176 mg/dl (65-105)
[2024-07-06 05:24] VITALS: BP 158/75; PULSE 52; RESP 16; TEMP 36.4; O2SAT 98
[2024-07-06 06:17] LABS: Basophils Absolute Auto 0.1 K/mm3 (0.0-0.1); Basophils Percent Auto 0.9 % (0.2-1.2); Eosinophils Absolute Auto 0.1 K/mm3 (0-0.3); Hematocrit 40.7 % (42.0-52.0); Hemoglobin 13.5 g/dL (14.0-18.0); Immature Granulocyte Absolute 0.02 K/mm3 (0.00-0.031); Immature Granulocyte Percent A 0.3 % (0-0.5); Lymphocytes Percent Auto 27.9 % (18.3-44.2); Mean Corpuscular HGB Conc 33.2 g/dl (32-36); Mean Corpuscular Hemoglobin 28.8 pg (26-34); Mean Corpuscular Volume 86.8 fl (80-100); Mean Platelet Volume 9.9 fl (7.4-10.4); Monocytes Absolute Auto 0.7 K/mm3 (0.1-0.6); Neutrophils Absolute Auto 4.8 K/mm3 (1.3-6.7); Neutrophils Percent Auto 60.9 % (45.5-73.1); Platelet Count Result 219 k/mm3 (150-375); Red Blood Count 4.69 M/mm3 (4.6-6.20); Red Cell Distribution Width 13.7 % (11.5-14.5); White Blood Count 7.9 K/mm3 (4.5-10.0)
[2024-07-06 06:31] LABS: Alanine Aminotransferase 14 U/L (6-50); Alkaline Phosphatase 80 U/L (38-126); Anion Gap 8 mmol/L (4-12); Aspartate Amino Transferase 41 U/L (17-59); Bilirubin,Total 0.7 mg/dL (0.2-1.3); Blood Urea Nitrogen 13 mg/dL (9-20); Calcium 8.9 mg/dL (8.4-10.2); Carbon Dioxide 25 mmol/L (22-30); Chloride 107 mmol/L (98-107); Estimated CRCL calculation 60 ml/min; Estimated Glomerular Filt Rate > 60; Glucose 138 mg/dL (65-110); Magnesium 2.1 mg/dL (1.6-2.3); Potassium 3.6 mmol/L (3.4-5.0); Sodium 140 mmol/L (137-145)
--- NOTE | 2024-07-06 07:18 | PC.NURSE ---
07/05/24 @ 2130- Patient refused all medications. Very disoriented, confuse and anxious. Tried several times to get out of bed without assistance. Dr notified of patient condition, ordered Ativan IV to help calm. All fall precautions set, bed in lowest position, call light within reach, bed alarm set. Will continue to monitor patient progress.
[2024-07-06 08:00] LABS: Glucose Point of Care 152 mg/dl (65-105)
[2024-07-06] MEDS: metFORMIN HCL XR 500 MG TAB.SR.24H PO ×2 (08:01→20:15)
[2024-07-06 11:56] LABS: Glucose Point of Care 138 mg/dl (65-105)
--- NOTE | 2024-07-06 12:48 | P.PNIM_ITS ---
Progress Note: A&P Assessment and Plan (1) Dementia: Code(s): F03.90 - Unspecified dementia, unspecified severity, without behavioral disturbance, psychotic disturbance, mood disturbance, and anxiety Status: Acute Assessment and Plan: * patient at his baseline level of orientation which is to self only. * pt is a fall risk * PT and OT evaluation for discharge planning * care coordination consult for discharge planning and placement (2) Risk for falls: Code(s): Z91.81 - History of falling Status: Acute Assessment and Plan: * heightened risk as patient has had overall decline in mental and physical capacities. * fall precautions * PT/OT (3) Diabetic nephropathy associated with type 2 diabetes mellitus: Code(s): E11.21 - Type 2 diabetes mellitus with diabetic nephropathy Status: Acute Assessment and Plan: * check A1c * continue metformin * Hypoglycemic protocol initiated * as patient has poor appetite will defer starting sliding scale insulin pending trend of glucose * Accu-Cheks a.c. and HS * * reviewed and [id number] (4) Essential (primary) hypertension: Code(s): I10 - Essential (primary) hypertension Status: Chronic Assessment and Plan: * trend and monitor labs and vital signs * continue home medication of lisinopril 20 mg daily * p.r.n. hydralazine ordered with parameters of systolic greater than 180 and diastolic greater than 90 Time Spent With Patient Time with patient: 25 - 35 minutes Subjective Date/time seen: 07/06/24 12:48 Interval history: This 89-year-old male patient with history of hypertension, vascular dementia and type 2 diabetes mellitus to resides at home with his spouse of 66+ years admitted for multiple falls at home and gradual decline in mental and physical capacities. In ed: EKG shows sinus tachycardia 113 beats per minute with a first-degree AV block and occasional PVCs. QTC is noted to be 426. Patient's CBC is notable only for marginal elevation in WBCs 11.8. Chest x-ray was performed that is negative for any acute abnormalities, CT head was negative for any acute intracranial abnormalities and CT of cervical spine showing no fracture but there is a noted nodule in the left upper lobe pole. X-rays were performed of bilateral elbows secondary to the amount of bruising he had and they are without any acute abnormal bony abnormalities. Pt's no longer is able to take care of pt ans he is admitted for PT / OT and care coordination consulted for discharge planning/placement. Pt is seen and examined. He is alert/oriented to self (baseline), knows he is in [facility]-but does not know which one. Comfortable, pleasant. denies any pain. and daughter at the bedside-updated on plan of care. Review of Systems Review of Systems: was primary source of information as pt's severe dementia prevents him from being a reliable historian. All systems reviewed & are unremarkable except as noted in HPI and below Exam Const: General: comfortable and no acute distress Other: Confused, elderly male patient lying supine at this time no acute distress. He is pleasant HENMT: Face/Nose/Sinus: Normal nares present Mouth: Yes dry mucous membranes Other: Atraumatic and normocephalic head Eyes: General: appearance normal, both eyes and all related structures Sclera: sclerae normal Pupils: Equal, round and reactive pupils present EOM: EOMs intact bilaterally Neck: Neck: supple and no JVD Chest: Other: nontender to palpation Resp: Effort & Inspection: normal respiratory effort Auscultation: clear to auscultation bilaterally Cardio: Rate: regular rate Rhythm: regular rhythm Heart sounds: no gallops, no murmurs and no rubs GI: Inspection: non-distended Auscultation: normal bowel sounds Skin: General skin exam: no rashes or lesions noted and no erythema Other: bruising noted to bilateral upper extremities Neuro: General: No gait normal Cranial nerves: Yes Equal, round and reactive pupils present Speech: normal speech Motor exam (neuro): 5/5 motor strength present throughout and Normal motor muscle tone present throughout Sensory Exam: normal sensation Other: alert oriented to self only Extrem: General: normal to inspection and no edema Psych: Other: A&O times 1 - self only Objective Data Vital Signs Vital Signs: Vital Signs - 24 hr 07/05/24 15:27 07/05/24 15:32 07/05/24 15:32 Temperature 98.7 F Pulse Rate 103 H 97 Respiratory Rate 18 Blood Pressure 181/109 H Pulse Oximetry 98 Oxygen Delivery 07/05/24 17:37 07/05/24 20:05 07/05/24 23:45 Temperature 98.3 F Pulse Rate 105 H 76 Respiratory Rate 18 18 Blood Pressure 157/114 H 146/97 H Pulse Oximetry 100 97 Oxygen Delivery Room Air 07/06/24 00:05 07/06/24 05:24 07/06/24 08:00 Temperature 97.5 F L Pulse Rate 52 L Respiratory Rate 16 Blood Pressure 171/96 H 158/75 H Pulse Oximetry 98 Oxygen Delivery Room Air Intake/Output Intake/Output: Intake & Output 07/03/24 07/04/24 07/05/24 07/06/24 23:59 23:59 23:59 23:59 Intake Total 790 Balance 790 Meds/Results Medications: Active Medications Generic Name Dose Route Start Last Admin Trade Name Freq PRN Reason Stop Dose Admin Dextrose 12.5 gm 07/05/24 20:58 Dextrose 50% 25 Gm/50 Ml Syringe IV PUSH PRN PRN Hypoglycemia Protocol Glucagon 1 mg 07/05/24 20:58 Glucagon For Inj 1 Mg Vial IM PRN PRN Hypoglycemia Protocol Glucose 15 gm 07/05/24 20:58 Glucose Oral Gel 15 Gm Of Glucse In 37.5 Gm Tube PO PRN PRN Hypoglycemia Protocol Hydralazine HCl 10 mg 07/05/24 20:58 Hydralazine Hcl 20 Mg/Ml Vial IV PUSH Q8H PRN Blood Pressure - High Dextrose 1,000 mls @ 100 mls/hr 07/05/24 20:58 Dextrose 5% 1,000 Ml IVPB PRN PRN Hypoglycemia Protocol Lisinopril 20 mg 07/05/24 21:00 07/05/24 22:29 Lisinopril 20 Mg Tablet PO Not Given HS LUCERO Lorazepam 0.5 mg 07/05/24 22:29 07/06/24 03:26 Lorazepam Inj (*Crx) 2 Mg/Ml Vial IV PUSH 0.5 mg Q6H PRN Administration Anxiety Metformin HCl 500 mg 07/05/24 21:00 07/06/24 08:01 Metformin Hcl Xr 500 Mg Tab.Sr.24h PO 500 mg Q12HR LUCERO Administration Pentoxifylline 400 mg 07/05/24 22:00 07/06/24 06:15 Pentoxifylline 400 Mg Tabcr PO Not Given Q8HR [facility] Radiology Results: ITS Impressions Chest X-Ray 07/05/24 15:59 IMPRESSION: No acute cardiopulmonary process. Head CT 07/05/24 17:14 IMPRESSION: No acute intracranial process. Cervical Spine CT 07/05/24 18:14 IMPRESSION: No acute fracture or traumatic malalignment in the cervical spine. 5 mm left upper lobe pulmonary nodule which requires no additional evaluation, unless the patient is at high risk, in which case consider an optional low-dose noncontrast CT of the chest in 12 months. Elbow X-Ray 07/05/24 18:26 IMPRESSION: No acute osseous finding in the left elbow. Labs Labs: Laboratory Results - last 24 hr 07/05/24 07/05/24 07/05/24 16:01 16:46 17:37 WBC 11.8 H RBC 4.93 Hgb 14.4 Hct 41.3 L MCV 83.8 MCH 29.2 MCHC 34.9 RDW 13.5 Plt Count 246 MPV 9.7 Immature Gran % (Auto) 0.3 Neut % (Auto) 73.8 H Lymph % (Auto) 16.5 L [place] % (Auto) 8.6 H Eos % (Auto) 0.3 Baso % (Auto) 0.5 Lymph # (Auto) 1.95 Grant # (Auto) 1.0 H Eos # (Auto) 0.0 Baso # (Auto) 0.1 Abs Immat Gran (auto) 0.04 H Absolute Neuts (auto) 8.7 H Absolute Nucleated RBC 0.000 Nucleated RBC % 0.0 Sodium 140 Potassium 3.7 Chloride 108 H Carbon Dioxide 23 Anion Gap 9 BUN 14 Creatinine 0.81 Estim Creat Clear Calc 55 Estimated GFR > 60 Glucose 140 H POC Capillary Glucose Hemoglobin A1c 8.2 H Calcium 9.4 Magnesium Total Bilirubin 0.7 AST 42 ALT 16 Alkaline Phosphatase 87 Total Protein 7.0 Albumin 4.4 Urine Color Yellow Urine Appearance Clear Urine pH 6.0 Ur Specific [place] 1.012 Urine Protein 2+ H Urine Glucose (UA) 1+ H Urine Ketones Trace H Ur Blood (Man) 1+ H Urine Nitrate Negative Urine Bilirubin Negative Urine Urobilinogen 0.2 Leukocyte Esterase Rfl Negative Urine RBC 0-2 Urine WBC 0-5 Ur Squamous Epith Cells None seen Urine Bacteria None seen Urine Casts 0-2 Influenza A (RT-PCR) Negative Influenza B (RT-PCR) Negative RSV (RT-PCR) Negative SARS-CoV-2 RNA (RT-PCR) Negative 07/05/24 07/06/24 07/06/24 22:03 06:03 07:57 WBC 7.9 RBC 4.69 Hgb 13.5 L Hct 40.7 L MCV 86.8 MCH 28.8 MCHC 33.2 RDW 13.7 Plt Count 219 MPV 9.9 Immature Gran % (Auto) 0.3 Neut % (Auto) 60.9 Lymph % (Auto) 27.9 Grant % (Auto) 9.0 H Eos % (Auto) 1.0 Baso % (Auto) 0.9 Lymph # (Auto) 2.20 Grant # (Auto) 0.7 H Eos # (Auto) 0.1 Baso # (Auto) 0.1 Abs Immat Gran (auto) 0.02 Absolute Neuts (auto) 4.8 Absolute Nucleated RBC 0.000 Nucleated RBC % 0.0 Sodium 140 Potassium 3.6 Chloride 107 Carbon Dioxide 25 Anion Gap 8 BUN 13 Creatinine 0.75 Estim Creat Clear Calc 60 Estimated GFR > 60 Glucose 138 H POC Capillary Glucose 176 H 152 H Hemoglobin A1c Calcium 8.9 Magnesium 2.1 Total Bilirubin 0.7 AST 41 ALT 14 Alkaline Phosphatase 80 Total Protein 7.0 Albumin 4.0 Urine Color Urine Appearance Urine pH Ur Specific [place] Urine Protein Urine Glucose (UA) Urine Ketones Ur Blood (Man) Urine Nitrate Urine Bilirubin Urine Urobilinogen Leukocyte Esterase Rfl Urine RBC Urine WBC Ur Squamous Epith Cells Urine Bacteria Urine Casts Influenza A (RT-PCR) Influenza B (RT-PCR) RSV (RT-PCR) SARS-CoV-2 RNA (RT-PCR) 07/06/24 11:54 WBC RBC Hgb Hct MCV MCH MCHC RDW Plt Count MPV Immature Gran % (Auto) Neut % (Auto) Lymph % (Auto) [place] % (Auto) Eos % (Auto) Baso % (Auto) Lymph # (Auto) Grant # (Auto) Eos # (Auto) Baso # (Auto) Abs Immat Gran (auto) Absolute Neuts (auto) Absolute Nucleated RBC Nucleated RBC % Sodium Potassium Chloride Carbon Dioxide Anion Gap BUN Creatinine Estim Creat Clear Calc Estimated GFR Glucose POC Capillary Glucose 138 H Hemoglobin A1c Calcium Magnesium Total Bilirubin AST ALT Alkaline Phosphatase Total Protein Albumin Urine Color Urine Appearance Urine pH Ur Specific [place] Urine Protein Urine Glucose (UA) Urine Ketones Ur Blood (Man) Urine Nitrate Urine Bilirubin Urine Urobilinogen Leukocyte Esterase Rfl Urine RBC Urine WBC Ur Squamous Epith Cells Urine Bacteria Urine Casts Influenza A (RT-PCR) Influenza B (RT-PCR) RSV (RT-PCR) SARS-CoV-2 RNA (RT-PCR) Quality VTE Prophylaxis VTE prophylaxis: mechanical ordered
[2024-07-06] MEDS: PENTOXIFYLLINE 400 MG TABCR PO ×2 (13:35→21:39)
[2024-07-06 14:00] VITALS: BP 157/74; PULSE 111; RESP 18; TEMP 36.5; O2SAT 98
[2024-07-06 16:49] LABS: Glucose Point of Care 125 mg/dl (65-105)
[2024-07-06] MEDS: lisinopriL 20 MG TABLET PO (20:15)
[2024-07-06 21:10] VITALS: BP 164/85; PULSE 76; RESP 20; TEMP 36.8; O2SAT 96
[2024-07-06 21:10] LABS: Glucose Point of Care 166 mg/dl (65-105)
[2024-07-07 06:00] VITALS: BP 165/98; PULSE 67; RESP 20; TEMP 36.9; O2SAT 99
[2024-07-07 06:14] LABS: Basophils Absolute Auto 0.1 K/mm3 (0.0-0.1); Basophils Percent Auto 0.6 % (0.2-1.2); Eosinophils Absolute Auto 0.2 K/mm3 (0-0.3); Eosinophils Percent Auto 3.1 % (0-4.4); Hematocrit 41.6 % (42.0-52.0); Hemoglobin 13.9 g/dL (14.0-18.0); Immature Granulocyte Absolute 0.02 K/mm3 (0.00-0.031); Immature Granulocyte Percent A 0.3 % (0-0.5); Lymphocytes Absolute Auto 1.95 K/mm3 (0.9-3.2); Lymphocytes Percent Auto 24.9 % (18.3-44.2); Mean Corpuscular HGB Conc 33.4 g/dl (32-36); Mean Corpuscular Hemoglobin 28.8 pg (26-34); Mean Corpuscular Volume 86.3 fl (80-100); Mean Platelet Volume 10.1 fl (7.4-10.4); Monocytes Absolute Auto 0.8 K/mm3 (0.1-0.6); Monocytes Percent Auto 9.8 % (2.6-8.5); Neutrophils Absolute Auto 4.8 K/mm3 (1.3-6.7); Neutrophils Percent Auto 61.3 % (45.5-73.1); Platelet Count Result 216 k/mm3 (150-375); Red Blood Count 4.82 M/mm3 (4.6-6.20); Red Cell Distribution Width 13.7 % (11.5-14.5); White Blood Count 7.8 K/mm3 (4.5-10.0)
[2024-07-07] MEDS: PENTOXIFYLLINE 400 MG TABCR PO ×3 (06:21→22:56)
[2024-07-07 06:28] LABS: Alanine Aminotransferase 13 U/L (6-50); Albumin Level 3.8 g/dL (3.5-5.1); Alkaline Phosphatase 76 U/L (38-126); Anion Gap 8 mmol/L (4-12); Aspartate Amino Transferase 37 U/L (17-59); Bilirubin,Total 0.7 mg/dL (0.2-1.3); Blood Urea Nitrogen 14 mg/dL (9-20); Calcium 8.7 mg/dL (8.4-10.2); Carbon Dioxide 24 mmol/L (22-30); Chloride 107 mmol/L (98-107); Cholesterol 180 mg/dL (0-200); Estimated CRCL calculation 59 ml/min; Estimated Glomerular Filt Rate > 60; Glucose 119 mg/dL (65-110); HDL Direct 42 mg/dL; Potassium 3.4 mmol/L (3.4-5.0); Sodium 139 mmol/L (137-145); Triglycerides 106 mg/dL (<150)
[2024-07-07 06:39] LABS: LDL Cholesterol Direct 106 mg/dL
[2024-07-07 08:00] VITALS: PULSE 67; RESP 20; O2SAT 99
--- NOTE | 2024-07-07 08:24 | P.PNIM_ITS ---
Progress Note: A&P Assessment and Plan (1) Dementia: Code(s): F03.90 - Unspecified dementia, unspecified severity, without behavioral disturbance, psychotic disturbance, mood disturbance, and anxiety Status: Acute Assessment and Plan: * patient at his baseline level of orientation which is to self only (baseline). * Pt is a fall risk * Pt's no longer is able to take care of pt, he is admitted for PT / OT and care coordination consulted for discharge planning/placement. * Care coordination consult for discharge planning and placement (2) Risk for falls: Code(s): Z91.81 - History of falling Status: Acute Assessment and Plan: * Heightened risk as patient has had overall decline in mental and physical capacities. 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 and HS * Reviewed and [id number] (4) Essential (primary) hypertension: Code(s): I10 - Essential (primary) hypertension Status: Chronic Assessment and Plan: * Trend and monitor labs and vital signs * Continue home medication of lisinopril 20 mg daily * p.r.n. hydralazine ordered with parameters of systolic greater than 180 and diastolic greater than 90 * -->Dose given today, delay due to pt pulling out IV. * BPs have been on the higher end today, per charting, pt refused his home Lisinopril 20mg on 5 PM but took it last night 07/06. Subjective Date/time seen: 07/07/24 1130 Interval history: Pt resting comfortably in chair, daughter at the bedside. Updated them on plan for placement with care coordination, pending. Pt denies any complaints today. All questions addressed. 1400: Went back to speak to at bedside. Updated her on the plan to speak with care coordination today, they will come see her soon. Review of Systems Review of Systems: was primary source of information as pt's severe dementia prevents him from being a reliable historian. All systems reviewed & are unremarkable except as noted in HPI and below Exam Const: General: comfortable and no acute distress HENMT: Face/Nose/Sinus: Normal nares present Mouth: Yes moist mucous membranes Eyes: General: appearance normal, both eyes and all related structures Sclera: sclerae normal Neck: Neck: supple and no JVD Carotids: no bruits Resp: Effort & Inspection: normal respiratory effort Auscultation: clear to auscultation bilaterally Cardio: Rate: regular rate Rhythm: regular rhythm GI: Inspection: non-distended Auscultation: normal bowel sounds Skin: General skin exam: normal color Wounds: no wounds Neuro: Speech: normal speech Motor exam (neuro): Normal motor muscle tone present throughout Sensory Exam: normal sensation Other: A&x1, to self. Pleasant. Extrem: General: normal to inspection Psych: Affect: normal affect Other: See neuro Objective Data Vital Signs Vital Signs: Vital Signs - 24 hr 07/06/24 14:00 07/06/24 20:15 07/06/24 21:10 Temperature 97.7 F 98.3 F Pulse Rate 111 H 76 Respiratory Rate 18 20 Blood Pressure 157/74 H 164/85 H Pulse Oximetry 98 96 Oxygen Delivery Room Air 07/07/24 06:00 Temperature 98.5 F Pulse Rate 67 Respiratory Rate 20 Blood Pressure 165/98 H Pulse Oximetry 99 Oxygen Delivery Intake/Output Intake/Output: Intake & Output 07/04/24 07/05/24 07/06/24 07/07/24 23:59 23:59 23:59 23:59 Intake Total 1270 50 Balance 1270 50 Meds/Results Medications: Active Medications Generic Name Dose Route Start Last Admin Trade Name Freq PRN Reason Stop Dose Admin Dextrose 12.5 gm 07/05/24 20:58 Dextrose 50% 25 Gm/50 Ml Syringe IV PUSH PRN PRN Hypoglycemia Protocol Glucagon 1 mg 07/05/24 20:58 Glucagon For Inj 1 Mg Vial IM PRN PRN Hypoglycemia Protocol Glucose 15 gm 07/05/24 20:58 Glucose Oral Gel 15 Gm Of Glucse In 37.5 Gm Tube PO PRN PRN Hypoglycemia Protocol Hydralazine HCl 10 mg 07/05/24 20:58 Hydralazine Hcl 20 Mg/Ml Vial IV PUSH Q8H PRN Blood Pressure - High Dextrose 1,000 mls @ 100 mls/hr 07/05/24 20:58 Dextrose 5% 1,000 Ml IVPB PRN PRN Hypoglycemia Protocol Lisinopril 20 mg 07/05/24 21:00 07/06/24 20:15 Lisinopril 20 Mg Tablet PO 20 mg HS LUCERO Administration Lorazepam 0.5 mg 07/05/24 22:29 07/06/24 23:51 Lorazepam Inj (*Crx) 2 Mg/Ml Vial IV PUSH 0.5 mg Q6H PRN Administration Anxiety Metformin HCl 500 mg 07/05/24 21:00 07/06/24 20:15 Metformin Hcl Xr 500 Mg Tab.Sr.24h PO 500 mg Q12HR LUCERO Administration Pentoxifylline 400 mg 07/05/24 22:00 07/07/24 06:21 Pentoxifylline 400 Mg Tabcr PO 400 mg Q8HR LUCERO Administration Radiology Results: ITS Impressions Chest X-Ray 07/05/24 15:59 IMPRESSION: No acute cardiopulmonary process. Head CT 07/05/24 17:14 IMPRESSION: No acute intracranial process. Cervical Spine CT 07/05/24 18:14 IMPRESSION: No acute fracture or traumatic malalignment in the cervical spine. 5 mm left upper lobe pulmonary nodule which requires no additional evaluation, unless the patient is at high risk, in which case consider an optional low-dose noncontrast CT of the chest in 12 months. Elbow X-Ray 07/05/24 18:26 IMPRESSION: No acute osseous finding in the left elbow. Labs Labs: Laboratory Results - last 24 hr 07/06/24 07/06/24 07/06/24 11:54 16:46 19:42 WBC RBC Hgb Hct MCV MCH MCHC RDW Plt Count MPV Immature Gran % (Auto) Neut % (Auto) Lymph % (Auto) Parker % (Auto) Eos % (Auto) Baso % (Auto) Lymph # (Auto) Parker # (Auto) Eos # (Auto) Baso # (Auto) Abs Immat Gran (auto) Absolute Neuts (auto) Absolute Nucleated RBC Nucleated RBC % Sodium Potassium Chloride Carbon Dioxide Anion Gap BUN Creatinine Estim Creat Clear Calc Estimated GFR Glucose POC Capillary Glucose 138 H 125 H 166 H Calcium Magnesium Total Bilirubin AST ALT Alkaline Phosphatase Total Protein Albumin Triglycerides Cholesterol LDL Cholesterol Direct HDL Direct Vitamin B12 Folate TSH (Reflex) 07/07/24 05:45 WBC 7.8 RBC 4.82 Hgb 13.9 L Hct 41.6 L MCV 86.3 MCH 28.8 MCHC 33.4 RDW 13.7 Plt Count 216 MPV 10.1 Immature Gran % (Auto) 0.3 Neut % (Auto) 61.3 Lymph % (Auto) 24.9 Parker % (Auto) 9.8 H Eos % (Auto) 3.1 Baso % (Auto) 0.6 Lymph # (Auto) 1.95 Parker # (Auto) 0.8 H Eos # (Auto) 0.2 Baso # (Auto) 0.1 Abs Immat Gran (auto) 0.02 Absolute Neuts (auto) 4.8 Absolute Nucleated RBC 0.000 Nucleated RBC % 0.0 Sodium 139 Potassium 3.4 Chloride 107 Carbon Dioxide 24 Anion Gap 8 BUN 14 Creatinine 0.76 Estim Creat Clear Calc 59 Estimated GFR > 60 Glucose 119 H POC Capillary Glucose Calcium 8.7 Magnesium 2.0 Total Bilirubin 0.7 AST 37 ALT 13 Alkaline Phosphatase 76 Total Protein 7.0 Albumin 3.8 Triglycerides 106 Cholesterol 180 LDL Cholesterol Direct 106 HDL Direct 42 Vitamin B12 201.0 L Folate 9.0 TSH (Reflex) 2.090 Quality VTE Prophylaxis VTE prophylaxis: mechanical ordered
[2024-07-07] MEDS: metFORMIN HCL XR 500 MG TAB.SR.24H PO ×2 (09:00→20:25)
[2024-07-07] MEDS: ACETAMINOPHEN 325 MG TABLET 650 MG PO (15:10)
[2024-07-07 15:34] VITALS: BP 187/77
[2024-07-07] MEDS: hydrALAZINE HCL 20 MG/ML VIAL 10 MG IV PUSH (16:45)
[2024-07-07 16:57] LABS: Glucose Point of Care 180 mg/dl (65-105)
[2024-07-07] MEDS: LORazepam INJ (*CRX) 2 MG/ML VIAL 0.5 MG IV PUSH (17:29)
--- NOTE | 2024-07-07 17:30 | PC.NURSE ---
Pt aggressive. Hitting staff, attempting to gt out of bed and trying to pull Iv out. Unable to redirect. PRN Ativan given as ordered. Staff remains at bedside.
[2024-07-07 18:00] VITALS: BP 151/77
[2024-07-07 20:00] VITALS: BP 161/62; PULSE 63; RESP 19; TEMP 35.9; O2SAT 93
[2024-07-07] MEDS: lisinopriL 20 MG TABLET PO (20:25)
[2024-07-07 21:05] LABS: Glucose Point of Care 176 mg/dl (65-105)
[2024-07-08] VITALS: BP 148/96; PULSE 95; RESP 18; TEMP 36.2; O2SAT 96
[2024-07-08 04:00] VITALS: BP 144/93; PULSE 85; RESP 18; TEMP 36.3; O2SAT 96
[2024-07-08] MEDS: PENTOXIFYLLINE 400 MG TABCR PO ×3 (05:04→21:22)
[2024-07-08 06:16] LABS: Basophils Absolute Auto 0.1 K/mm3 (0.0-0.1); Basophils Percent Auto 0.8 % (0.2-1.2); Eosinophils Absolute Auto 0.4 K/mm3 (0-0.3); Eosinophils Percent Auto 4.2 % (0-4.4); Hematocrit 40.8 % (42.0-52.0); Hemoglobin 13.6 g/dL (14.0-18.0); Immature Granulocyte Absolute 0.03 K/mm3 (0.00-0.031); Immature Granulocyte Percent A 0.4 % (0-0.5); Lymphocytes Percent Auto 26.4 % (18.3-44.2); Mean Corpuscular HGB Conc 33.3 g/dl (32-36); Mean Corpuscular Hemoglobin 28.8 pg (26-34); Mean Corpuscular Volume 86.4 fl (80-100); Mean Platelet Volume 10.1 fl (7.4-10.4); Monocytes Absolute Auto 0.8 K/mm3 (0.1-0.6); Neutrophils Absolute Auto 4.9 K/mm3 (1.3-6.7); Neutrophils Percent Auto 58.2 % (45.5-73.1); Platelet Count Result 199 k/mm3 (150-375); Red Blood Count 4.72 M/mm3 (4.6-6.20); Red Cell Distribution Width 13.8 % (11.5-14.5); White Blood Count 8.3 K/mm3 (4.5-10.0)
[2024-07-08 06:33] LABS: Alanine Aminotransferase 15 U/L (6-50); Albumin Level 3.8 g/dL (3.5-5.1); Alkaline Phosphatase 71 U/L (38-126); Anion Gap 11 mmol/L (4-12); Aspartate Amino Transferase 34 U/L (17-59); Bilirubin,Total 0.6 mg/dL (0.2-1.3); Blood Urea Nitrogen 18 mg/dL (9-20); Calcium 8.7 mg/dL (8.4-10.2); Carbon Dioxide 22 mmol/L (22-30); Chloride 108 mmol/L (98-107); Estimated CRCL calculation 58 ml/min; Estimated Glomerular Filt Rate > 60; Glucose 143 mg/dL (65-110); Magnesium 2.1 mg/dL (1.6-2.3); Potassium 3.2 mmol/L (3.4-5.0); Sodium 141 mmol/L (137-145)
--- NOTE | 2024-07-08 07:00 | P.PNIM_ITS ---
Progress Note: A&P Assessment and Plan (1) Dementia: Code(s): F03.90 - Unspecified dementia, unspecified severity, without behavioral disturbance, psychotic disturbance, mood disturbance, and anxiety Status: Acute Assessment and Plan: * Patient at his baseline level of orientation which is to self only. * Pt is a fall risk * Pt's no longer is able to take care of pt, he is admitted for PT / OT and care coordination consulted for discharge planning/placement. * Care coordination update today that has given x2 facilities to consider, acceptance pending via insurance. (2) Risk for falls: Code(s): Z91.81 - History of falling Status: Acute Assessment and Plan: * Heightened risk as patient has had overall decline in mental and physical capacities. 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 and HS * Reviewed and [id number] (4) Essential (primary) hypertension: Code(s): I10 - Essential (primary) hypertension Status: Chronic Assessment and Plan: * Trend and monitor labs and vital signs * Continue home medication of lisinopril 20 mg daily * p.r.n. hydralazine ordered with parameters of systolic greater than 180 and diastolic greater than 90 * -->Dose given 5/5, delay due to pt pulling out IV. * BPs have been on the higher end recently, per charting, pt refused his home Lisinopril 20mg on 5/3 PM but took it every night since. Plan Pending SNF placement Time Spent With Patient Time with patient: less than 15 minutes Subjective Date/time seen: 07/08/24 0825 Interval history: Patient admitted for gradual decline in mental and physical capabilities per including more falls. Patient currently resides at home with as his primary caregiver. Patient is baseline A&O x1 to self. Patient's who is also his POA wants him admitted for placement as she thinks she cannot care for him any longer. Patient has been stable throughout admission, and has been actively working with care coordination for placement. has decided on 2 separate facilities, care coordination discussing placement with both facilities ongoing today. Patient with upper extremity bruising from recent falls, Emergency Department workup negative. Plan to discharge to a facility upon approval. Patient resting in bed eating breakfast, pleasant. Review of Systems Review of Systems: was primary source of information as pt's severe dementia prevents him from being a reliable historian. All systems reviewed & are unremarkable except as noted in HPI and below Exam Const: General: comfortable and no acute distress HENMT: Face/Nose/Sinus: Normal nares present Mouth: Yes moist mucous membranes Eyes: General: appearance normal, both eyes and all related structures Sclera: sclerae normal Neck: Neck: supple and no JVD Carotids: no bruits Resp: Effort & Inspection: normal respiratory effort Auscultation: clear to auscultation bilaterally Cardio: Rate: regular rate Rhythm: regular rhythm GI: Inspection: non-distended Auscultation: normal bowel sounds Skin: General skin exam: normal color and no rashes or lesions noted Other: BUE with mild bruising throughout Neuro: Speech: normal speech Sensory Exam: normal sensation Other: A&O x1 to self, this is baseline. Extrem: Other: See skin Psych: Affect: normal affect Other: See neuro Objective Data Vital Signs Vital Signs: Vital Signs - 24 hr 07/07/24 08:00 07/07/24 08:02 07/07/24 10:54 Temperature Pulse Rate 67 Respiratory Rate 20 Blood Pressure Pulse Oximetry 99 Oxygen Delivery Room Air Room Air Room Air 07/07/24 15:34 07/07/24 18:00 07/07/24 20:00 Temperature 96.6 F L Pulse Rate 63 Respiratory Rate 19 Blood Pressure 187/77 H 151/77 H 161/62 H Pulse Oximetry 93 Oxygen Delivery 07/07/24 20:25 07/08/24 00:00 07/08/24 04:00 Temperature 97.2 F L 97.4 F L Pulse Rate 95 85 Respiratory Rate 18 18 Blood Pressure 148/96 H 144/93 H Pulse Oximetry 96 96 Oxygen Delivery Room Air Intake/Output Intake/Output: Intake & Output 07/05/24 07/06/24 07/07/24 07/08/24 23:59 23:59 23:59 23:59 Intake Total 1270 1770 100 Balance 1270 1770 100 Meds/Results Medications: Active Medications Generic Name Dose Route Start Last Admin Trade Name Freq PRN Reason Stop Dose Admin Acetaminophen 650 mg 07/07/24 14:50 07/07/24 15:10 Acetaminophen 325 Mg Tablet PO 650 mg Q4H PRN Administration Headache Dextrose 12.5 gm 07/05/24 20:58 Dextrose 50% 25 Gm/50 Ml Syringe IV PUSH PRN PRN Hypoglycemia Protocol Glucagon 1 mg 07/05/24 20:58 Glucagon For Inj 1 Mg Vial IM PRN PRN Hypoglycemia Protocol Glucose 15 gm 07/05/24 20:58 Glucose Oral Gel 15 Gm Of Glucse In 37.5 Gm Tube PO PRN PRN Hypoglycemia Protocol Hydralazine HCl 10 mg 07/05/24 20:58 07/07/24 16:45 Hydralazine Hcl 20 Mg/Ml Vial IV PUSH 10 mg Q8H PRN Administration Blood Pressure - High Dextrose 1,000 mls @ 100 mls/hr 07/05/24 20:58 Dextrose 5% 1,000 Ml IVPB PRN PRN Hypoglycemia Protocol Lisinopril 20 mg 07/05/24 21:00 07/07/24 20:25 Lisinopril 20 Mg Tablet PO 20 mg HS LUCERO Administration Lorazepam 0.5 mg 07/05/24 22:29 07/07/24 17:29 Lorazepam Inj (*Crx) 2 Mg/Ml Vial IV PUSH 0.5 mg Q6H PRN Administration Anxiety Metformin HCl 500 mg 07/05/24 21:00 07/07/24 20:25 Metformin Hcl Xr 500 Mg Tab.Sr.24h PO 500 mg Q12HR LUCERO Administration Pentoxifylline 400 mg 07/05/24 22:00 07/08/24 05:04 Pentoxifylline 400 Mg Tabcr PO 400 mg Q8HR LUCERO Administration Radiology Results: ITS Impressions Chest X-Ray 07/05/24 15:59 IMPRESSION: No acute cardiopulmonary process. Head CT 07/05/24 17:14 IMPRESSION: No acute intracranial process. Cervical Spine CT 07/05/24 18:14 IMPRESSION: No acute fracture or traumatic malalignment in the cervical spine. 5 mm left upper lobe pulmonary nodule which requires no additional evaluation, unless the patient is at high risk, in which case consider an optional low-dose noncontrast CT of the chest in 12 months. Elbow X-Ray 07/05/24 18:26 IMPRESSION: No acute osseous finding in the left elbow. Labs Labs: Laboratory Results - last 24 hr 07/07/24 07/07/24 07/07/24 05:45 16:52 20:24 WBC RBC Hgb Hct MCV MCH MCHC RDW Plt Count MPV Immature Gran % (Auto) Neut % (Auto) Lymph % (Auto) Stevens % (Auto) Eos % (Auto) Baso % (Auto) Lymph # (Auto) Stevens # (Auto) Eos # (Auto) Baso # (Auto) Abs Immat Gran (auto) Absolute Neuts (auto) Absolute Nucleated RBC Nucleated RBC % Sodium Potassium Chloride Carbon Dioxide Anion Gap BUN Creatinine Estim Creat Clear Calc Estimated GFR Glucose POC Capillary Glucose 180 H 176 H Calcium Magnesium Total Bilirubin AST ALT Alkaline Phosphatase Total Protein Albumin Vitamin B12 201.0 L Folate 9.0 07/08/24 05:55 WBC 8.3 RBC 4.72 Hgb 13.6 L Hct 40.8 L MCV 86.4 MCH 28.8 MCHC 33.3 RDW 13.8 Plt Count 199 MPV 10.1 Immature Gran % (Auto) 0.4 Neut % (Auto) 58.2 Lymph % (Auto) 26.4 Stevens % (Auto) 10.0 H Eos % (Auto) 4.2 Baso % (Auto) 0.8 Lymph # (Auto) 2.20 Stevens # (Auto) 0.8 H Eos # (Auto) 0.4 H Baso # (Auto) 0.1 Abs Immat Gran (auto) 0.03 Absolute Neuts (auto) 4.9 Absolute Nucleated RBC 0.000 Nucleated RBC % 0.0 Sodium 141 Potassium 3.2 L Chloride 108 H Carbon Dioxide 22 Anion Gap 11 BUN 18 Creatinine 0.78 Estim Creat Clear Calc 58 Estimated GFR > 60 Glucose 143 H POC Capillary Glucose Calcium 8.7 Magnesium 2.1 Total Bilirubin 0.6 AST 34 ALT 15 Alkaline Phosphatase 71 Total Protein 6.0 L Albumin 3.8 Vitamin B12 Folate Quality VTE Prophylaxis VTE prophylaxis: mechanical ordered
[2024-07-08 07:45] LABS: Glucose Point of Care 143 mg/dl (65-105)
[2024-07-08 08:00] VITALS: BP 156/86; PULSE 96; RESP 18; TEMP 36.3; O2SAT 98
[2024-07-08] MEDS: metFORMIN HCL XR 500 MG TAB.SR.24H PO ×2 (09:52→20:42)
[2024-07-08 12:00] VITALS: BP 167/64; PULSE 65; RESP 20; TEMP 36.4; O2SAT 96
[2024-07-08 12:23] LABS: Glucose Point of Care 146 mg/dl (65-105)
[2024-07-08 16:00] VITALS: BP 173/80; PULSE 90; RESP 20; TEMP 36.3; O2SAT 99
[2024-07-08 16:22] LABS: Glucose Point of Care 127 mg/dl (65-105)
[2024-07-08] MEDS: LORazepam INJ (*CRX) 2 MG/ML VIAL 0.5 MG IV PUSH (18:31)
[2024-07-08 20:00] VITALS: BP 163/94; PULSE 110; RESP 22; TEMP 37.1; O2SAT 98
[2024-07-08] MEDS: lisinopriL 20 MG TABLET PO (20:42)
[2024-07-09] VITALS: BP 131/69; PULSE 54; RESP 18; TEMP 36.6; O2SAT 98
[2024-07-09 04:00] VITALS: BP 144/68; PULSE 55; RESP 18; TEMP 36.6; O2SAT 99
[2024-07-09] MEDS: PENTOXIFYLLINE 400 MG TABCR PO (05:42)
--- NOTE | 2024-07-09 07:35 | P.PNIM_ITS ---
Progress Note: A&P Assessment and Plan (1) Dementia: Code(s): F03.90 - Unspecified dementia, unspecified severity, without behavioral disturbance, psychotic disturbance, mood disturbance, and anxiety Status: Acute Assessment and Plan: * Patient at his baseline level of orientation which is to self only. * Pt is a fall risk * Pt's no longer is able to take care of pt, he is admitted for PT / OT and care coordination consulted for discharge planning/placement. * Care coordination update today that has given x2 facilities to consider, acceptance pending via insurance. (2) Risk for falls: Code(s): Z91.81 - History of falling Status: Acute Assessment and Plan: * Heightened risk as patient has had overall decline in mental and physical capacities. 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 and HS * Reviewed and [id number] (4) Essential (primary) hypertension: Code(s): I10 - Essential (primary) hypertension Status: Chronic Assessment and Plan: * Trend and monitor labs and vital signs * Continue home medication of lisinopril 20 mg daily * p.r.n. hydralazine ordered with parameters of systolic greater than 180 and diastolic greater than 90 * -->Dose given 5/5, delay due to pt pulling out IV. * BPs have been on the higher end recently, per charting, pt refused his home Lisinopril 20mg on 5/3 PM but took it every night since. Plan Pending SNF placement Subjective Date/time seen: 07/09/24 07:35 Interval history: Patient admitted for gradual decline in mental and physical capabilities per including more falls. Patient currently resides at home with as his primary caregiver. Patient is baseline A&O x1 to self. Patient's who is also his POA wants him admitted for placement as she thinks she cannot care for him any longer. Patient has been stable throughout admission, and has been actively working with care coordination for placement. has decided on 2 separate facilities, care coordination discussing placement with both facilities ongoing today. Patient with upper extremity bruising from recent falls, Emergency Department workup negative. Plan to discharge to a facility upon approval. Patient resting in bed eating breakfast, pleasant. Review of Systems Review of Systems: was primary source of information as pt's severe dementia prevents him from being a reliable historian. All systems reviewed & are unremarkable except as noted in HPI and below Exam Const: General: comfortable and no acute distress Other: Confused, elderly male patient lying supine at this time no acute distress. He is pleasant HENMT: Face/Nose/Sinus: Normal nares present Mouth: Yes moist mucous membranes and Yes dry mucous membranes Other: Atraumatic and normocephalic head Eyes: General: appearance normal, both eyes and all related structures Sclera: sclerae normal Pupils: Equal, round and reactive pupils present EOM: EOMs intact bilaterally Neck: Neck: supple and no JVD Carotids: no bruits Chest: Other: nontender to palpation Resp: Effort & Inspection: normal respiratory effort Auscultation: clear to auscultation bilaterally Cardio: Rate: regular rate Rhythm: regular rhythm Heart sounds: no gallops, no murmurs and no rubs GI: Inspection: non-distended Auscultation: normal bowel sounds Skin: General skin exam: normal color, no rashes or lesions noted and no erythema Wounds: no wounds Other: BUE with mild bruising throughout Neuro: General: No gait normal Cranial nerves: Yes Equal, round and reactive pupils present Speech: normal speech Motor exam (neuro): 5/5 motor strength present throughout and Normal motor muscle tone present throughout Sensory Exam: normal sensation Other: A&O x1 to self, this is baseline. Extrem: General: normal to inspection and no edema Other: See skin Psych: Affect: normal affect Other: See neuro Objective Data Vital Signs Vital Signs: Vital Signs - 24 hr 07/08/24 08:00 07/08/24 08:00 07/08/24 12:00 Temperature 97.4 F L 97.5 F L Pulse Rate 96 65 Respiratory Rate 18 20 Blood Pressure 156/86 H 167/64 H Pulse Oximetry 98 96 Oxygen Delivery Room Air 07/08/24 16:00 07/08/24 20:00 07/08/24 20:42 Temperature 97.3 F L 98.7 F Pulse Rate 90 110 H Respiratory Rate 20 22 H Blood Pressure 173/80 H 163/94 H Pulse Oximetry 99 98 Oxygen Delivery Room Air 07/09/24 00:00 07/09/24 04:00 Temperature 98 F 98 F Pulse Rate 54 L 55 L Respiratory Rate 18 18 Blood Pressure 131/69 144/68 H Pulse Oximetry 98 99 Oxygen Delivery Intake/Output Intake/Output: Intake & Output 07/06/24 07/07/24 07/08/24 07/09/24 23:59 23:59 23:59 23:59 Intake Total 1270 1770 340 100 Balance 1270 1770 340 100 Meds/Results Medications: Active Medications Generic Name Dose Route Start Last Admin Trade Name Freq PRN Reason Stop Dose Admin Acetaminophen 650 mg 07/07/24 14:50 07/07/24 15:10 Acetaminophen 325 Mg Tablet PO 650 mg Q4H PRN Administration Headache Dextrose 12.5 gm 07/05/24 20:58 Dextrose 50% 25 Gm/50 Ml Syringe IV PUSH PRN PRN Hypoglycemia Protocol Glucagon 1 mg 07/05/24 20:58 Glucagon For Inj 1 Mg Vial IM PRN PRN Hypoglycemia Protocol Glucose 15 gm 07/05/24 20:58 Glucose Oral Gel 15 Gm Of Glucse In 37.5 Gm Tube PO PRN PRN Hypoglycemia Protocol Hydralazine HCl 10 mg 07/05/24 20:58 07/07/24 16:45 Hydralazine Hcl 20 Mg/Ml Vial IV PUSH 10 mg Q8H PRN Administration Blood Pressure - High Dextrose 1,000 mls @ 100 mls/hr 07/05/24 20:58 Dextrose 5% 1,000 Ml IVPB PRN PRN Hypoglycemia Protocol Lisinopril 20 mg 07/05/24 21:00 07/08/24 20:42 Lisinopril 20 Mg Tablet PO 20 mg HS LUCERO Administration Lorazepam 0.5 mg 07/05/24 22:29 07/08/24 18:31 Lorazepam Inj (*Crx) 2 Mg/Ml Vial IV PUSH 0.5 mg Q6H PRN Administration Anxiety Metformin HCl 500 mg 07/05/24 21:00 07/08/24 20:42 Metformin Hcl Xr 500 Mg Tab.Sr.24h PO 500 mg Q12HR LUCERO Administration Pentoxifylline 400 mg 07/05/24 22:00 07/09/24 05:42 Pentoxifylline 400 Mg Tabcr PO 400 mg Q8HR LUCERO Administration Radiology Results: ITS Impressions Chest X-Ray 07/05/24 15:59 IMPRESSION: No acute cardiopulmonary process. Head CT 07/05/24 17:14 IMPRESSION: No acute intracranial process. Cervical Spine CT 07/05/24 18:14 IMPRESSION: No acute fracture or traumatic malalignment in the cervical spine. 5 mm left upper lobe pulmonary nodule which requires no additional evaluation, unless the patient is at high risk, in which case consider an optional low-dose noncontrast CT of the chest in 12 months. Elbow X-Ray 07/05/24 18:26 IMPRESSION: No acute osseous finding in the left elbow. Labs Labs: Laboratory Results - last 24 hr 07/08/24 07/08/24 07/08/24 07:17 11:28 16:18 POC Capillary Glucose 143 H 146 H 127 H Quality VTE Prophylaxis VTE prophylaxis: mechanical ordered
[2024-07-09 08:00] VITALS: BP 144/70; PULSE 80; RESP 20; TEMP 36.4; O2SAT 96
[2024-07-09] MEDS: metFORMIN HCL XR 500 MG TAB.SR.24H PO (08:30)
[2024-07-09 08:34] LABS: Glucose Point of Care 164 mg/dl (65-105)
[2024-07-09 09:21] LABS: Basophils Absolute Auto 0.1 K/mm3 (0.0-0.1); Basophils Percent Auto 0.6 % (0.2-1.2); Eosinophils Absolute Auto 0.2 K/mm3 (0-0.3); Eosinophils Percent Auto 2.8 % (0-4.4); Hematocrit 38.9 % (42.0-52.0); Hemoglobin 13.4 g/dL (14.0-18.0); Immature Granulocyte Absolute 0.03 K/mm3 (0.00-0.031); Immature Granulocyte Percent A 0.4 % (0-0.5); Lymphocytes Absolute Auto 1.91 K/mm3 (0.9-3.2); Lymphocytes Percent Auto 23.6 % (18.3-44.2); Mean Corpuscular HGB Conc 34.4 g/dl (32-36); Mean Corpuscular Hemoglobin 29.6 pg (26-34); Mean Corpuscular Volume 85.9 fl (80-100); Monocytes Absolute Auto 0.7 K/mm3 (0.1-0.6); Monocytes Percent Auto 8.5 % (2.6-8.5); Neutrophils Absolute Auto 5.2 K/mm3 (1.3-6.7); Neutrophils Percent Auto 64.1 % (45.5-73.1); Platelet Count Result 216 k/mm3 (150-375); Red Blood Count 4.53 M/mm3 (4.6-6.20); Red Cell Distribution Width 13.9 % (11.5-14.5); White Blood Count 8.1 K/mm3 (4.5-10.0)
[2024-07-09 09:37] LABS: Anion Gap 9 mmol/L (4-12); Blood Urea Nitrogen 19 mg/dL (9-20); Calcium 8.8 mg/dL (8.4-10.2); Carbon Dioxide 25 mmol/L (22-30); Chloride 108 mmol/L (98-107); Estimated CRCL calculation 59 ml/min; Estimated Glomerular Filt Rate > 60; Glucose 153 mg/dL (65-110); Potassium 3.4 mmol/L (3.4-5.0); Sodium 142 mmol/L (137-145)
[2024-07-09 12:00] VITALS: BP 151/72; PULSE 99; RESP 20; TEMP 36.6; O2SAT 98
[2024-07-09 12:12] LABS: Glucose Point of Care 129 mg/dl (65-105)
--- NOTE | 2024-07-09 13:19 | P.DS_ITS ---
DS: Admitting Diagnosis Discharge Date 07/09/2024 Admitting Diagnosis Dementia Risk for falls DS: Discharge Diagnosis Discharge Diagnosis (1) Dementia: Code(s): F03.90 - Unspecified dementia, unspecified severity, without behavioral disturbance, psychotic disturbance, mood disturbance, and anxiety Status: Acute (2) Risk for falls: Code(s): Z91.81 - History of falling Status: Acute (3) Diabetic nephropathy associated with type 2 diabetes mellitus: Code(s): E11.21 - Type 2 diabetes mellitus with diabetic nephropathy Status: Acute (4) Essential (primary) hypertension: Code(s): I10 - Essential (primary) hypertension Status: Chronic DS: Summary Hospital Course Reason for hospitalization: Dementia, fall risk Hospital Course: This 89-year-old male patient with history of hypertension, vascular dementia and type 2 diabetes mellitus to resides at home with his spouse of 66+ years comes to the emergency room brought by EMS after having multiple falls at home and gradual decline in mental and physical capacities. Patient's has always been able to care for him at home without difficulty but she noticed for approximately the past month he has had increasing mental decline with increased confusion, his level of orientation being alert and oriented to self at times not recognizing her and calling her mom . He has had a poor appetite and some days only drinks because he is told he has 2. She notes he has been falling more frequently at home. At baseline he ambulates with a walker and states that today he fell attempting to get out of the recliner and after approximately 2 hours he was able to pull himself up on a piece of furniture after crawling over 2 it. She states he set id the recliner than for most of the day but this afternoon attempted to ambulate to the bathroom with a walker and fell in the bathroom hitting his head on the wall. There was no reported loss of consciousness. Who she was unable to assist patient in getting up and therefore called 911. At baseline patient is alert and oriented to self only. She states his current level of orientation is his new baseline for some time now. Patient is pleasant however very confused and nose only his self at this time. He is a chronic smoker noted to be at Minimum a 60 pack-year smoker. Patient's states that she has been told that his dementia is due to his smoking causing vascular disease. Upon arrival to the emergency room he is noted to have scattered bruising on the bilateral upper extremities. Workup was performed in the emergency room that consisted of labs , EKG and imaging. EKG shows sinus tachycardia 113 beats per minute with a first-degree AV block and occasional PVCs. QTC is noted to be 426. Patient's CBC is notable only for marginal elevation in WBCs 11.8. Metabolic panel is unremarkable. Chest x-ray was performed that is negative for any acute abnormalities, CT head was negative for any acute intracranial abnormalities and CT of cervical spine showing no fracture but there is a noted nodule in the left upper lobe pole. X- rays were performed of bilateral elbows secondary to the amount of bruising he had and they are without any acute abnormal bony abnormalities. The ER physician discussed with patient's at the bedside her conformability w/ discharge to home versus admission for potential placement. At this time patient's is emotionally distraught over this decision but ultimately states she can no longer care for him at home and would like to have him placed. Given patient's decline in overall physical and mental capabilities and his height and safety risks ER provider as well as hospitalist Service agrees that this patient should be admitted, observed and evaluated by PT / OT and care coordination consulted for discharge planning/placement. Patient has been stable throughout admission. Care coordination has been consulted regarding appropriate placement to a SNF. We have been working with who decided on two separate facilities that she would prefer. [facility] [place] has accepted the patient has i discussed this with the daughter who states that this is appropriate and would like to go through with discharge at this point. Medically, the patient has been stable, with stable blood work, vitals and a benign physical exam. Plan for discharge to SNF at this time. Time Spent with Patient Time attestation: Total time spent providing and/or coordinating discharge services: 35 Exam Const: Other: Confused, elderly male patient lying supine at this time no acute distress. He is pleasant HENMT: Other: Atraumatic and normocephalic head Neck: Neck: supple Chest: Other: nontender to palpation Resp: Effort & Inspection: normal respiratory effort Auscultation: clear to auscultation bilaterally Cardio: Rate: regular rate Rhythm: regular rhythm GI: GI Palp: Yes Soft to palpation Auscultation: normal bowel sounds Skin: Other: BUE with mild bruising throughout Neuro: Other: A&O x1 to self, this is baseline. Extrem: Other: See skin Psych: Other: See neuro DS: Data Data Completed and Pending Labs on day of discharge: Labs from last 24 hours 07/09/24 07/09/24 07/09/24 11:50 09:04 08:11 WBC 8.1 RBC 4.53 L Hgb 13.4 L Hct 38.9 L MCV 85.9 MCH 29.6 MCHC 34.4 RDW 13.9 Plt Count 216 MPV 10.0 Immature Gran % (Auto) 0.4 Neut % (Auto) 64.1 Lymph % (Auto) 23.6 [place] % (Auto) 8.5 Eos % (Auto) 2.8 Baso % (Auto) 0.6 Lymph # (Auto) 1.91 [place] # (Auto) 0.7 H Eos # (Auto) 0.2 Baso # (Auto) 0.1 Abs Immat Gran (auto) 0.03 Absolute Neuts (auto) 5.2 Absolute Nucleated RBC 0.000 Nucleated RBC % 0.0 Sodium 142 Potassium 3.4 Chloride 108 H Carbon Dioxide 25 Anion Gap 9 BUN 19 Creatinine 0.76 Estim Creat Clear Calc 59 Estimated GFR > 60 Glucose 153 H POC Capillary Glucose 129 H 164 H Calcium 8.8 07/08/24 16:18 WBC RBC Hgb Hct MCV MCH MCHC RDW Plt Count MPV Immature Gran % (Auto) Neut % (Auto) Lymph % (Auto) [place] % (Auto) Eos % (Auto) Baso % (Auto) Lymph # (Auto) [place] # (Auto) Eos # (Auto) Baso # (Auto) Abs Immat Gran (auto) Absolute Neuts (auto) Absolute Nucleated RBC Nucleated RBC % Sodium Potassium Chloride Carbon Dioxide Anion Gap BUN Creatinine Estim Creat Clear Calc Estimated GFR Glucose POC Capillary Glucose 127 H Calcium Discharge Plan Discharge Attending physician on discharge: Alejandro Zepeda Discharging Clinician: Alejandro Zepeda Anticipated Discharge Date/Time: 07/09/24 13:17 Patient Disposition: SNF Activity: as tolerated Diet: as tolerated Discharge Instructions: Discharge disposition: Stable Take medications as prescribed Monitor blood pressures Take caution while standing, rising, or moving Change positions slowly taking a break between each position change If you standing feel dizzy sit back down and take a break Encouraged to continue with yearly vaccinations Return to the emergency department if he developed sudden shortness of breath, chest pain, nausea, vomiting, upset stomach or intractable diarrhea Return to the emergency department if you develop fever greater than 101.5 Follow-up with the primary care physician within 1-2 weeks Thank you for [facility] for your healthcare needs Patient Language: Korean Stand Alone Forms: General Discharge Information Follow-up/Referrals: Johnathan Perez MD [Primary Care Provider] - Discharge Medications: Continued pentoxifylline 400 mg tablet extended release See Rx Instructions .ROUTE .COMPLEX Qty: 270 3RF Dose Instruction: TAKE 1 TABLET TWICE A DAY Rx Instructions: TAKE 1 TABLET three x A DAY metformin 500 mg tablet extended release 24 hr See Rx Instructions .ROUTE .COMPLEX Qty: 180 1RF Dose Instruction: TAKE 1 TABLET TWICE A DAY Rx Instructions: TAKE 1 TABLET TWICE A DAY lisinopril 20 mg tablet See Rx Instructions .ROUTE .COMPLEX Qty: 90 1RF Dose Instruction: TAKE 1 TABLET DAILY Rx Instructions: TAKE 1 TABLET DAILY Date of admission: 07/05/24 18:24 Primary Care Provider: Johnathan Perez Admitting Provider: Jared Gallardo Attending physician on admission: Alejandro Zepeda Condition: Stable Quality VTE Prophylaxis VTE prophylaxis: mechanical ordered Hospitalist MIPS Heart Failure (Exclusion) Patient has history of Heart Transplant or Left Ventricular Assistive Device?: No IF YES, STOP HERE Heart Failure (Qualifier) Patient has current or prior documentation of LVEF less than or equal to 40%, or mod/servere depressed LVSF?: No IF NO, STOP HERE
[2024-07-09 14:58] LABS: SARS-CoV-2 RNA PCR Negative (Negative)
[2024-07-10 06:29] LABS: Glucose Point of Care 149 mg/dl (65-105)
== END 2024-07-09 15:35 ==
LOC: ANHED 16:37 → ANH3MEDSUR 18:53
PROVIDERS: Nurse Practitioner; Nurse Practitioner Acute Care; Nurse Practitioner Adult Health; Admitting Provider Internal Medicine; Emergency Provider Emergency Medicine; PCP Family Medicine; Visit Provider Physician Assistant
DX: F01.C0 Vascular dementia, severe, without behavioral disturbance, psychotic disturbance, mood disturbance, and anxiety (principal); S09.90XA Unspecified injury of head, initial encounter; W19.XXXA Unspecified fall, initial encounter; Z91.81 History of falling; F17.210 Nicotine dependence, cigarettes, uncomplicated; R62.7 Adult failure to thrive; Z68.22 Body mass index [BMI] 22.0-22.9, adult; E11.21 Type 2 diabetes mellitus with diabetic nephropathy; S50.02XA Contusion of left elbow, initial encounter; S50.01XA Contusion of right elbow, initial encounter; I10 Essential (primary) hypertension; R31.9 Hematuria, unspecified; Z20.822 Contact with and (suspected) exposure to COVID-19; Z75.1 Person awaiting admission to adequate facility elsewhere; Z79.899 Other long term (current) drug therapy
CPT/HCPCS: 36415; 70450; 71046; 72125; 73080; 80048; 80053; 80061; 81001; 82607; 82746; 82948; 83036; 83735; 84443; 85025; 87635; 87637; 93005; 96372; 96374; 96375; 96376; 97161; 97166; 97530; 97535; 99285; A9270; G0378; J0360; J2060

== ENCOUNTER 2024-07-19 23:13 | Emergency (ER) | payer MEDICARE, SELFPAY ==
--- NOTE | ~2024-07-19 | XR_ITS ---
Portable chest x-ray Comparison: 07/05/2022 Clinical History: Altered mental status Findings: Lungs are clear, without focal consolidation or pleural effusion. Cardiomediastinal silho uette is stable. Bones and soft tissues are unremarkable. Impression: Clear lungs. Reviewed, dictated and finalized at location . Impression: Clear lungs.
[2024-07-19 23:15] VITALS: BP 164/86; PULSE 60; RESP 16; TEMP 37.2; O2SAT 96
[2024-07-19 23:25] VITALS: O2SAT 97
--- NOTE | 2024-07-19 23:36 | ED.AMS ---
HPI - Altered Mental Status General Chief Complaint: Altered Mental Status Stated Complaint: altered mental status Time Seen by Provider: 07/19/24 23:18 History of Present Illness HPI narrative: Patient with recent diagnosis dementia and [facility] placement sent here by [facility] today due to them concerned that he seems less chatty than usual. To me he denies any complaints, denies any chest pain, shortness of breath, cough, pain including the abdomen and head, nausea vomiting. He does not know why he is here Related Data Allergies Allergy/AdvReac Type Severity Reaction Status Date / Time No Known Allergies Allergy Unknown Verified 04/04/24 15:14 Review of Systems Review of Systems: All systems reviewed & are unremarkable except as noted in HPI and below PMFSH Past Medical History Medical History Cognitive impairment Overweight (BMI 25.0-29.9) Family History Family History Grandparent Diabetes mellitus Mother Diabetes mellitus Father Patient's father is Other Carcinoma of colon Social History Social History Years smoked: 60 Smoking status: Current some day smoker Tobacco type: cigarettes Second hand tobacco smoke exposure: No Alcohol intake: never Substance use: never Substance use type: does not use Lack of Transportation: No Lack of Food: Never True Current Housing: I Have Housing Concerned About Future Housing: No Difficulty Paying Gas/Electric Bills: No Difficulty Paying for Meds: No Living arrangements: with family Occupation/Education: retired Gender identity (if verbalized by the patient): Male Sexual Orientation (if Verbalized by the Patient): Straight or Heterosexual Spiritual care concerns: No Agree to blood products: Yes Exam Narrative: EXAMINATION OF ORGAN SYSTEMS/BODY AREAS: Constitutional: Vital signs per nursing GENERAL:[No acute distress, non-toxic appearing.] HEAD: Normal with no signs of head trauma. EYES: EOMI, conjunctiva normal ENT: Hearing grossly intact LUNGS: Nonlabored breathing. HEART: [Regular rate and rhythm] ABD: [Soft], [nontender to palpation] EXT: Normal range of motion SKIN: [No rashes or lesions.] NEURO: [Alert and oriented x 2 which is baseline for patient. No gross focal sensory or strength deficits.] PSYCH: Normal affect Course Vital Signs Vital signs: Vital Signs Temperature 99 F 07/19/24 23:15 Pulse Rate 60 07/19/24 23:15 Respiratory Rate 16 07/19/24 23:15 Blood Pressure 164/86 H 07/19/24 23:15 Pulse Oximetry 96 07/19/24 23:15 Oxygen Delivery Room Air 07/19/24 23:15 Temperature 99 F 07/19/24 23:15 Pulse Rate 102 H 07/20/24 03:00 Respiratory Rate 22 H 07/20/24 02:30 Blood Pressure 173/82 H 07/20/24 03:00 Pulse Oximetry 96 07/20/24 00:42 Oxygen Delivery Room Air 07/19/24 23:25 MDM - Altered Mental Status MDM Narrative Medical decision making narrative: Patient very well-appearing here, admit distress, not sure why he is here, denies any complaints. He is answering questions normally here, he has no neurologic deficits, I did obtain broad workup with labs, which are within acceptable limits, no obvious pneumonia on chest x-ray and no obvious UTI on urinalysis. I do feel he can likely go back to [facility], I will replete his potassium, have him follow-up with his primary care doctor with return precautions. Lab Data 07/20/24 00:10 07/20/24 00:10 Labs: Lab Results 07/20/24 Range/Units 00:10 WBC 10.7 H (4.5-10.0) K/mm3 RBC 4.68 (4.6-6.20) M/mm3 Hgb 13.4 L (14.0-18.0) g/dL Hct 40.2 L (42.0-52.0) % MCV 85.9 (80-100) fl MCH 28.6 (26-34) pg MCHC 33.3 (32-36) g/dl RDW 14.1 (11.5-14.5) % Plt Count 300 (150-375) k/mm3 MPV 10.8 H (7.4-10.4) fl Immature Gran % (Auto) 1.0 H (0-0.5) % Neut % (Auto) 71.0 (45.5-73.1) % Lymph % (Auto) 17.6 L (18.3-44.2) % [place] % (Auto) 9.2 H (2.6-8.5) % Eos % (Auto) 0.8 (0-4.4) % Baso % (Auto) 0.4 (0.2-1.2) % Lymph # (Auto) 1.89 (0.9-3.2) K/mm3 [place] # (Auto) 1.0 H (0.1-0.6) K/mm3 Eos # (Auto) 0.1 (0-0.3) K/mm3 Baso # (Auto) 0.0 (0.0-0.1) K/mm3 Abs Immat Gran (auto) 0.11 H (0.00-0.031) K/mm3 Absolute Neuts (auto) 7.6 H (1.3-6.7) K/mm3 Absolute Nucleated RBC 0.000 (0.0-0.012) K/mm3 Nucleated RBC % 0.0 (0.0-0.2) % Sodium 142 (137-145) mmol/L Potassium 3.2 L (3.4-5.0) mmol/L Chloride 104 (98-107) mmol/L Carbon Dioxide 25 (22-30) mmol/L Anion Gap 13 H (4-12) mmol/L BUN 18 (9-20) mg/dL Creatinine 0.83 (0.7-1.3) mg/dL Estim Creat Clear Calc 54 ml/min Estimated GFR > 60 (59 - ) Glucose 104 (65-110) mg/dL Calcium 8.8 (8.4-10.2) mg/dL Total Bilirubin 0.6 (0.2-1.3) mg/dL AST 26 (17-59) U/L ALT 20 (6-50) U/L Alkaline Phosphatase 68 (38-126) U/L Total Protein 7.0 (6.3-8.2) g/dL Albumin 3.6 (3.5-5.1) g/dL Urine Color Yellow (Yellow) Urine Appearance Clear (Clear) Urine pH 5.5 (5.0-9.0) Ur Specific [place] 1.021 (1.001-1.035) Urine Protein 2+ H (Negative) mg/dL Urine Glucose (UA) Negative (Negative) mg/dL Urine Ketones 2+ H (Negative) mg/dL Ur Blood (Man) 2+ H (Negative) Urine Nitrate Negative (Negative) Urine Bilirubin Negative (Negative) Urine Urobilinogen 1.0 (<2.0) mg/dL Leukocyte Esterase Rfl Trace H (Negative) DAVE/UL Urine RBC 51-100 H (0-2) /hpf Urine WBC 0-5 (0-3) /hpf Ur Squamous Epith Cells None seen (Few) /hpf Urine Bacteria None seen /hpf Urine Casts 0-2 Discharge Plan Discharge Clinical Impression: Cognitive impairment Patient Disposition: [facility] Condition: Stable Instructions: Antibiotic Form, General Patient Instructions Additional Instructions: You can follow-up with your primary care doctor, and come back to the hospital for any further issues. Patient Language: Ukrainian Prescriptions: No Action pentoxifylline 400 mg tablet extended release See Rx Instructions .ROUTE .COMPLEX Qty: 270 3RF Dose Instruction: TAKE 1 TABLET TWICE A DAY Rx Instructions: TAKE 1 TABLET three x A DAY metformin 500 mg tablet extended release 24 hr See Rx Instructions .ROUTE .COMPLEX Qty: 180 1RF Dose Instruction: TAKE 1 TABLET TWICE A DAY Rx Instructions: TAKE 1 TABLET TWICE A DAY lisinopril 20 mg tablet See Rx Instructions .ROUTE .COMPLEX Qty: 90 1RF Dose Instruction: TAKE 1 TABLET DAILY Rx Instructions: TAKE 1 TABLET DAILY Follow-up/Referrals: Johnathan Perez MD [Primary Care Provider] - 2 Days
[2024-07-20] VITALS (7 sets, daily range): BP systolic 163–173; BP diastolic 60–95; PULSE 60–106; RESP 18–22; TEMP 36.6; O2SAT 96
[2024-07-20 00:19] LABS: Basophils Percent Auto 0.4 % (0.2-1.2); Eosinophils Absolute Auto 0.1 K/mm3 (0-0.3); Eosinophils Percent Auto 0.8 % (0-4.4); Hematocrit 40.2 % (42.0-52.0); Hemoglobin 13.4 g/dL (14.0-18.0); Immature Granulocyte Absolute 0.11 K/mm3 (0.00-0.031); Lymphocytes Absolute Auto 1.89 K/mm3 (0.9-3.2); Lymphocytes Percent Auto 17.6 % (18.3-44.2); Mean Corpuscular HGB Conc 33.3 g/dl (32-36); Mean Corpuscular Hemoglobin 28.6 pg (26-34); Mean Corpuscular Volume 85.9 fl (80-100); Mean Platelet Volume 10.8 fl (7.4-10.4); Monocytes Percent Auto 9.2 % (2.6-8.5); Neutrophils Absolute Auto 7.6 K/mm3 (1.3-6.7); Platelet Count Result 300 k/mm3 (150-375); Red Blood Count 4.68 M/mm3 (4.6-6.20); Red Cell Distribution Width 14.1 % (11.5-14.5); White Blood Count 10.7 K/mm3 (4.5-10.0)
--- NOTE | 2024-07-20 00:19 | ECG_ITS ---
Test Date: 2024-07-20 00:19:39 Measurements Intervals [place] Rate: 99 P: 0 DC: 0 QRS: -13 QRSD: 105 T: 93 QT: 387 QTc: 497 Interpretive Statements ATRIAL FIBRILLATION NONSPECIFIC ST & T-WAVE ABNORMALITY ABNORMAL ECG Compared to ECG 07/05/2024 16:14:11 Sinus tachycardia no longer present First degree AV block no longer present T-wave abnormality still present Electronically Signed On 07-20-2024 08:10:05 CDT by Beltran Conrad M.D.
[2024-07-20 00:21] LABS: Add Urine Microscopic? YES; Appearance Urine Clear (Clear); Bacteria Urine None Seen /hpf; Bilirubin Urine Negative (Negative); Blood Urine 2+ (Negative); Color Urine Yellow (Yellow); Glucose Urine UA Negative (Negative); Ketones Urine 2+ mg/dL (Negative); Leukocyte Esterase Ur Trace LEU/UL (Negative); Nitrate Urine Negative (Negative); Non Pathogenic Casts 0-2; Protein Urine 2+ mg/dL (Negative); RBC Urine 51-100 /hpf (0-2); Specific Grav Ur 1.021 (1.001-1.035); Squamous Epithelial Cell Urine None Seen /hpf (Few); WBC Urine 0-5 /hpf (0-3); pH Urine 5.5 (5.0-9.0)
[2024-07-20 00:32] LABS: Alanine Aminotransferase 20 U/L (6-50); Albumin Level 3.6 g/dL (3.5-5.1); Alkaline Phosphatase 68 U/L (38-126); Anion Gap 13 mmol/L (4-12); Aspartate Amino Transferase 26 U/L (17-59); Bilirubin,Total 0.6 mg/dL (0.2-1.3); Blood Urea Nitrogen 18 mg/dL (9-20); Calcium 8.8 mg/dL (8.4-10.2); Carbon Dioxide 25 mmol/L (22-30); Chloride 104 mmol/L (98-107); Estimated CRCL calculation 54 ml/min; Estimated Glomerular Filt Rate > 60; Glucose 104 mg/dL (65-110); Potassium 3.2 mmol/L (3.4-5.0); Sodium 142 mmol/L (137-145)
[2024-07-20] MEDS: LACTATED RINGERS 1,000 ML 999 ML IV CONT (02:06)
--- NOTE | 2024-07-20 02:18 | PC.NURSE ---
Pt ripped out IV. RN placed a new one.
--- NOTE | 2024-07-20 03:20 | PC.NURSE ---
This RN spoke to Alyssa GREENE from [facility] and gave update. Will call back with
--- NOTE | 2024-07-20 04:54 | PC.NURSE ---
This RN called [facility] and updated RN of pt status and ETA.
[2024-07-20] MEDS: POTASSIUM CHLORIDE 20 MEQ ER TABLET 40 MEQ PO (06:09)
== END 2024-07-20 09:09 ==
PROVIDERS: Emergency Provider Emergency Medicine; PCP Family Medicine
DX: R41.82 Altered mental status, unspecified (principal); F03.90 Unspecified dementia, unspecified severity, without behavioral disturbance, psychotic disturbance, mood disturbance, and anxiety; F17.210 Nicotine dependence, cigarettes, uncomplicated
CPT/HCPCS: 36415; 71045; 80053; 81001; 85025; 93005; 96360; 99283; A9270; J7120

== ENCOUNTER 2024-07-21 12:47 | Emergency (ER) | payer MEDICARE, SELFPAY ==
--- NOTE | ~2024-07-21 | CT_ITS ---
EXAMINATION: CT cervical spine wo con DATE: 07/21/2024 15:41 INDICATION: trauma TECHNIQUE: Computed tomography (CT) of the cervical spine was performed without intravenous contrast. Automated exposure control and iterative reconstruction technique were employed. The dose-length pro duct was 262.62 mGy-cm. COMPARISON: 07/05/2024. FINDINGS: Vertebral Body Alignment: Intact. Craniocervical and atlantoaxial alignment: Moderate degenerative change. Alignment intact. Osseous structures/fracture: No evidence of a lytic or blastic process in the visualized spine. No e vidence of acute fracture. Cervical soft tissues: The paraspinal soft tissues planes are maintained. With biapical pleural scarr ing. 5 mm left upper lobe pulmonary nodule. Degenerative changes: Multilevel degenerative disc disease and facet arthropathy. Severe left neural foraminal narrowing at C6-7, secondary to degenerative changes. No severe central canal narrowing. IMPRESSION: No acute fracture or traumatic malalignment in the cervical spine. 5 mm left upper lobe pulmonary nodule, prior recommendation is unchanged. Reviewed, dictated and finalized at location K.
--- NOTE | ~2024-07-21 | CT_ITS ---
EXAMINATION: CT brain wo con DATE: 07/21/2024 15:40 INDICATION: Head injury TECHNIQUE: Computed tomography (CT) of the head was performed without intravenous contrast. Sagittal and coronal reconstructions were performed. The mA was adjusted according to patient size. Iterative reconstruction technique was employed. The dose-length product was 681.00 mGy-cm. COMPARISON: head CT dated 07/05/2024 FINDINGS: Small left frontal scalp hematoma. No fracture. No acute intracranial hemorrhage, acute infarction or abnormal extra axial fluid collection. 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 A couple additional small old infarcts in the right frontoparietal region. There is moderate scattered white matter hypoattenuation consistent with chronic small vessel ischemic disease. Symmetric promine nce of the sulci and ventricles consistent with mild age-appropriate diffuse cerebral volume loss. No rmal variant cavum septum pellucidum and vergae. No mass/mass effect. Changes of bilateral intraocula r lens replacement. There is mucosal thickening in the bilateral ethmoid, sphenoid and left maxillary sinuses and at the left frontoethmoidal recess. Mastoid air cells and middle ear cavities are clear. IMPRESSION: 1. No fracture or acute intracranial process. 2. 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 Reviewed, dictated and finalized at location A. IMPRESSION: 1. No fracture or acute intracranial process. 2. 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
[2024-07-21 12:55] VITALS: BP 159/74; PULSE 98; RESP 27; TEMP 36.4; O2SAT 92
--- NOTE | 2024-07-21 13:01 | PC.NURSE ---
patient wound on forhead cleaned at this time, antibiotic ointment and bandaged placed.
[2024-07-21 15:13] VITALS: BP 167/70; PULSE 85; RESP 18; O2SAT 99
--- NOTE | 2024-07-21 15:31 | ED_ITS ---
HPI - General Adult General Chief complaint: Fall Stated complaint: fall Time Seen by Provider: 07/21/24 15:02 History of Present Illness HPI narrative: 89-year-old male with history of dementia presenting to the emergency department for evaluation for a fall with head injury. Patient was walking in the dining room at his care facility and fell and struck the left side of his forehead. Patient arrived to the emergency department by EMS in a C-collar. Patient has dementia at baseline and is agitated. Related Data Allergies Allergy/AdvReac Type Severity Reaction Status Date / Time No Known Allergies Allergy Unknown Verified 04/04/24 15:14 Review of Systems Review of Systems: All systems reviewed & are unremarkable except as noted in HPI and below PMFSH Past Medical History Medical History Cognitive impairment Overweight (BMI 25.0-29.9) Family History Family History Grandparent Diabetes mellitus Mother Diabetes mellitus Father Patient's father is Other Carcinoma of colon Social History Social History Years smoked: 60 Smoking status: Current some day smoker Tobacco type: cigarettes Second hand tobacco smoke exposure: No Alcohol intake: never Substance use: never Substance use type: does not use Lack of Transportation: No Lack of Food: Never True Current Housing: I Have Housing Concerned About Future Housing: No Difficulty Paying Gas/Electric Bills: No Difficulty Paying for Meds: No Living arrangements: with family Occupation/Education: retired Gender identity (if verbalized by the patient): Male Sexual Orientation (if Verbalized by the Patient): Straight or Heterosexual Spiritual care concerns: No Agree to blood products: Yes Exam Narrative: APPEARANCE: Well appearing, no pain, no distress, well-nourished. HEAD: normocephalic, abrasion to left forehead. EYES: PERRLA/EOMI, conjunctivae clear. NOSE: Normal no drainage EARS:TMS clear with good light reflex. THROAT: Pharynx clear, no exudate. NECK: Supple. No adenopathy, no masses. RESPIRATORY: Airway patent, respirations nonlabored. Clear to auscultation bilaterally, no rales, rhonchi, wheezing. CARDIOVASCULAR: Regular rate and rhythm without murmurs rubs or gallops. ABDOMINAL: Soft, nontender, nondistended, normal bowel sounds MUSCULOSKELETAL: Moves all extremities. Strength/ROM intact, No edema, No calf tenderness. NEURO: Alert. Cranial nerves II through XII intact. Good gait. Good coordination SKIN: Warm, dry. Normal Color Course Vital Signs Vital signs: Vital Signs Temperature 97.6 F 07/21/24 12:55 Pulse Rate 98 07/21/24 12:55 Respiratory Rate 27 H 07/21/24 12:55 Blood Pressure 159/74 H 07/21/24 12:55 Pulse Oximetry 92 07/21/24 12:55 Temperature 97.6 F 07/21/24 12:55 Pulse Rate 85 07/21/24 15:13 Respiratory Rate 18 07/21/24 15:13 Blood Pressure 167/70 H 07/21/24 15:13 Pulse Oximetry 99 07/21/24 15:13 Medical Decision Making MDM Narrative Medical decision making narrative: 89-year-old male history of dementia presents to the emergency department for evaluation for head injury. Brain CT and cervical spine CT were negative. Patient was discharged back to his care facility. Patient family updated the results of the imaging. Differential Diagnosis Differential Diagnosis: Subdural hematoma, subarachnoid hemorrhage, cervical spine fracture Vital Signs Vital Signs: Vital Signs Temperature 97.6 F 07/21/24 12:55 Pulse Rate 98 07/21/24 12:55 Respiratory Rate 27 H 07/21/24 12:55 Blood Pressure 159/74 H 07/21/24 12:55 Pulse Oximetry 92 07/21/24 12:55 Temperature 97.6 F 07/21/24 12:55 Pulse Rate 85 07/21/24 15:13 Respiratory Rate 18 07/21/24 15:13 Blood Pressure 167/70 H 07/21/24 15:13 Pulse Oximetry 99 07/21/24 15:13 Discharge Plan Discharge Clinical Impression: Head injury Patient Disposition: Home Condition: Stable Instructions: Antibiotic Form, Head Injury (ED) Additional Instructions: Wound care as directed. Have close follow-up with your primary care physician. Patient Language: Kazakh Prescriptions: No Action pentoxifylline 400 mg tablet extended release See Rx Instructions .ROUTE .COMPLEX Qty: 270 3RF Dose Instruction: TAKE 1 TABLET TWICE A DAY Rx Instructions: TAKE 1 TABLET three x A DAY metformin 500 mg tablet extended release 24 hr See Rx Instructions .ROUTE .COMPLEX Qty: 180 1RF Dose Instruction: TAKE 1 TABLET TWICE A DAY Rx Instructions: TAKE 1 TABLET TWICE A DAY lisinopril 20 mg tablet See Rx Instructions .ROUTE .COMPLEX Qty: 90 1RF Dose Instruction: TAKE 1 TABLET DAILY Rx Instructions: TAKE 1 TABLET DAILY Follow-up/Referrals: Johnathan Perez MD [Primary Care Provider] -
--- NOTE | 2024-07-21 17:03 | PC.NURSE ---
EMS concerned at this time about blood pressures being elevated, they were getting bp of 200s/70s, upon repositioning of the bp cuff and taking a bp it was 172/86 which has been his normal this visit as well as prior visits. ERP was consulted by EMS personnel who asked if it was okay that he got transferred at this time with a bp of 172/86
== END 2024-07-21 17:07 ==
PROVIDERS: Emergency Provider Emergency Medicine; PCP Family Medicine
DX: S09.90XA Unspecified injury of head, initial encounter (principal); F17.210 Nicotine dependence, cigarettes, uncomplicated; F03.90 Unspecified dementia, unspecified severity, without behavioral disturbance, psychotic disturbance, mood disturbance, and anxiety; W01.0XXA Fall on same level from slipping, tripping and stumbling without subsequent striking against object, initial encounter
CPT/HCPCS: 70450; 72125; 99284